=== PATIENT | male | born 1945 | race Caucasian/White ===

== ENCOUNTER 2020-07-19 20:06 | Inpatient (IN) | payer BC, SELFPAY ==
[~2020-07-19] VITALS: Ht 170.2 cm; Wt 68.0 kg
[2020-07-19 20:06] VITALS: BP_SYST 135
[2020-07-19 22:39] LABS: HEMATOCRIT 36.6 % (36-54); HEMOGLOBIN 12.7 g/dL (14.0-18.0); MEAN CORPUSCULAR HEMOGLOBIN 39 pg (27-31); MEAN CORPUSCULAR HGB CONC 35 % (32-36); MEAN CORPUSCULAR VOLUME 111 fL (79.0-98.0); PLATELET COUNT (AUTO) 139 K/uL (130-430); RED BLOOD CELL COUNT(AUTO) 3.31 MIL/uL (4.2-6.2); RED CELL DISTRIBUTION WIDTH 14.3 % (9.0-15.0); WHITE BLOOD COUNT (AUTO) 8.8 K/uL (4.8-10.8)
[2020-07-19 23:11] LABS: ANION GAP 9 (5-15); CALCIUM 8.1 mg/dL (8.4-11.0); CHLORIDE 100 mmol/L (98-107); CREATININE 0.89 mg/dL (0.55-1.30); GLUCOSE 121 mg/dL (70-99); POTASSIUM 3.9 mmol/L (3.5-5.1); SODIUM SERUM 135 mmol/L (136-145); UREA NITROGEN, BLOOD 20 mg/dL (8-21)
[2020-07-19 23:22] LABS: ALANINE AMINOTRANSFERASE 37 U/L (12-78); ALBUMIN 2.6 g/dL (3.4-4.8); ASPARTATE AMINOTRANSFERASE 78 U/L (10-37); TOTAL BILIRUBIN 0.6 mg/dL (0.0-1.0)
[2020-07-20 02:07] LABS: C-REACTIVE PROTEIN QUANT 28.7 mg/dL (0-0.5)
[2020-07-20] MEDS ORDERED: cefTRIAXone 1 GM in D5W 50 ML IV ONE (03:30)
[2020-07-20] MEDS ORDERED: VANCOMYCIN HCL 1,000 MG in NS 250 ML IV ONE (04:15)
[2020-07-20] MEDS ORDERED: cefTRIAXone 1 GM VIAL ONE (04:37)
[2020-07-20] MEDS ORDERED: NACL 0.9% 1,000 ML IV ONE (04:45)
[2020-07-20] MEDS ORDERED: VANCOMYCIN HCL 1000 MG/VIAL IV ONE (04:52)
[2020-07-20] MEDS ORDERED: ONDANSETRON HCL 4 MG/2 ML VIAL IVP PRN (07:00)
[2020-07-20] MEDS ORDERED: HYDROcodone/ACETAMIN 10-325 MG TAB PO PRN (07:00)
[2020-07-20] MEDS ORDERED: ALBUTEROL SULFATE 0.083% 2.5 MG/3 ML VIAL.NEB INH PRN (07:00)
[2020-07-20] MEDS: IPRATROPIUM BROM 0.5 MG/2.5 ML VIAL.NEB (ATROVENT) INH SCH ×2 (07:00→11:00)
[2020-07-20] MEDS ORDERED: LORazepam 2 MG/ML VIAL IVP PRN (07:00)
[2020-07-20] MEDS ORDERED: HYDROcodone/ACETAMIN 5-325 MG TAB (NORCO/ VICODIN) PO PRN (07:00)
[2020-07-20] MEDS ORDERED: NALOXONE HCL 0.4 MG/ML AMP (NARCAN) IVP PRN ×2 (07:00)
[2020-07-20] MEDS ORDERED: ENOXAPARIN SODIUM 30 MG/0.3 ML SYRINGE SUBCUT SCH (09:00)
[2020-07-20] MEDS: AZITHROMYCIN 500 MG in NS 250 ML IV SCH (09:18)
[2020-07-20 10:08] LABS: BASOPHILS % (AUTO) 0.2 % (0.0-2.0); HEMOGLOBIN 12.3 g/dL (14.0-18.0); LYMPHOCYTES # (AUTO) 0.6 K/uL (1.0-5.5); LYMPHOCYTES % (AUTO) 6.8 % (20.5-51.5); MEAN CORPUSCULAR HEMOGLOBIN 38 pg (27-31); MEAN CORPUSCULAR HGB CONC 34 % (32-36); MEAN CORPUSCULAR VOLUME 111 fL (79.0-98.0); MONOCYTES # (AUTO) 0.1 K/uL (0.0-1.0); MONOCYTES % (AUTO) 1.3 % (1.7-9.3); NEUTROPHILS # (AUTO) 8.2 K/uL (1.8-7.7); NEUTROPHILS % (AUTO) 91.7 % (40.0-70.0); PLATELET COUNT (AUTO) 141 K/uL (130-430); RED BLOOD CELL COUNT(AUTO) 3.23 MIL/uL (4.2-6.2); RED CELL DISTRIBUTION WIDTH 14.5 % (9.0-15.0); WHITE BLOOD COUNT (AUTO) 8.9 K/uL (4.8-10.8)
[2020-07-20 10:38] LABS: ANION GAP 10 (5-15); CALCIUM 7.9 mg/dL (8.4-11.0); CHLORIDE 102 mmol/L (98-107); CREATININE 0.69 mg/dL (0.55-1.30); GLUCOSE 90 mg/dL (70-99); POTASSIUM 3.9 mmol/L (3.5-5.1); SODIUM SERUM 138 mmol/L (136-145); UREA NITROGEN, BLOOD 17 mg/dL (8-21)
[2020-07-20 11:41] VITALS: BP_SYST 121
[2020-07-20] MEDS ORDERED: DECADRON 4 MG TABLET PO ONE (11:45)
[2020-07-20 12:35] LABS: ERYTHROCYTE SEDIMENTATION RATE 88 MM/HR (0-15)
[2020-07-20] MEDS ORDERED: NORMAL SALINE 5 ML DISP.SYRIN IVF SCH (14:00)
[2020-07-20] MEDS: NORMAL SALINE 5 ML DISP.SYRIN IVF SCH ×2 (14:04→22:12)
[2020-07-20 14:36] LABS: C-REACTIVE PROTEIN QUANT 32.1 mg/dL (0-0.5)
[2020-07-20 14:48] LABS: ALBUMIN 2.3 g/dL (3.4-4.8); BILIRUBIN,DIRECT 0.2 mg/dL (0.0-0.3); TOTAL BILIRUBIN 0.5 mg/dL (0.0-1.0)
[2020-07-20] MEDS: ALBUTEROL MDI INHALATION 8 GM INH INH SCH ×3 (15:00→23:28)
[2020-07-20] MEDS: ASCORBIC ACID 500 MG TABLET PO SCH (20:43)
[2020-07-20] MEDS: ENOXAPARIN SODIUM 40 MG/0.4 ML SYRINGE SUBCUT SCH (20:48)
[2020-07-20] MEDS: cefTRIAXone 1 GM IVPB PREMIX 50 ML IV SCH (20:49)
[2020-07-21 01:30] VITALS: BP_SYST 104
[2020-07-21] MEDS: NORMAL SALINE 5 ML DISP.SYRIN IVF SCH ×3 (06:53→21:20)
[2020-07-21 08:00] VITALS: BP_SYST 127
[2020-07-21 08:14] LABS: BASOPHILS % (AUTO) 0.2 % (0.0-2.0); HEMATOCRIT 37.4 % (36-54); HEMOGLOBIN 12.9 g/dL (14.0-18.0); LYMPHOCYTES # (AUTO) 0.6 K/uL (1.0-5.5); LYMPHOCYTES % (AUTO) 6.1 % (20.5-51.5); MEAN CORPUSCULAR HEMOGLOBIN 38 pg (27-31); MEAN CORPUSCULAR HGB CONC 35 % (32-36); MEAN CORPUSCULAR VOLUME 111 fL (79.0-98.0); MONOCYTES # (AUTO) 0.2 K/uL (0.0-1.0); MONOCYTES % (AUTO) 1.7 % (1.7-9.3); NEUTROPHILS # (AUTO) 8.5 K/uL (1.8-7.7); PLATELET COUNT (AUTO) 164 K/uL (130-430); RED BLOOD CELL COUNT(AUTO) 3.37 MIL/uL (4.2-6.2); RED CELL DISTRIBUTION WIDTH 14.8 % (9.0-15.0); WHITE BLOOD COUNT (AUTO) 9.3 K/uL (4.8-10.8)
[2020-07-21] MEDS: CHOLECALCIFEROL (VITAMIN D3) 5,000 UNIT TABLET PO SCH (08:31)
[2020-07-21] MEDS: AZITHROMYCIN 500 MG in NS 250 ML IV SCH (08:31)
[2020-07-21] MEDS: DECADRON 4 MG TABLET PO SCH (08:31)
[2020-07-21] MEDS: ASCORBIC ACID 500 MG TABLET PO SCH ×2 (08:31→21:08)
[2020-07-21] MEDS: ENOXAPARIN SODIUM 40 MG/0.4 ML SYRINGE SUBCUT SCH ×2 (08:31→21:20)
[2020-07-21 09:24] LABS: ALANINE AMINOTRANSFERASE 43 U/L (12-78); ALBUMIN 2.2 g/dL (3.4-4.8); ANION GAP 10 (5-15); ASPARTATE AMINOTRANSFERASE 65 U/L (10-37); CALCIUM 8.5 mg/dL (8.4-11.0); CHLORIDE 103 mmol/L (98-107); CREATININE 0.65 mg/dL (0.55-1.30); GLUCOSE 116 mg/dL (70-99); PHOSPHORUS 2.7 mg/dL (2.7-4.5); SODIUM SERUM 140 mmol/L (136-145); TOTAL BILIRUBIN 0.4 mg/dL (0.0-1.0); UREA NITROGEN, BLOOD 21 mg/dL (8-21)
[2020-07-21] MEDS: ALBUTEROL MDI INHALATION 8 GM INH INH SCH ×5 (10:24→23:49)
[2020-07-21 11:53] VITALS: BP_SYST 119
[2020-07-21 16:34] VITALS: BP_SYST 119
[2020-07-21] MEDS: cefTRIAXone 1 GM IVPB PREMIX 50 ML IV SCH (21:08)
[2020-07-22 01:32] VITALS: BP_SYST 116
[2020-07-22] MEDS: ALBUTEROL MDI INHALATION 8 GM INH INH SCH ×5 (05:00→23:56)
[2020-07-22] MEDS: NORMAL SALINE 5 ML DISP.SYRIN IVF SCH ×3 (07:02→22:00)
[2020-07-22 07:38] LABS: BASOPHILS % (AUTO) 0.1 % (0.0-2.0); HEMATOCRIT 36.6 % (36-54); HEMOGLOBIN 12.6 g/dL (14.0-18.0); LYMPHOCYTES # (AUTO) 0.4 K/uL (1.0-5.5); LYMPHOCYTES % (AUTO) 3.8 % (20.5-51.5); MEAN CORPUSCULAR HEMOGLOBIN 38 pg (27-31); MEAN CORPUSCULAR HGB CONC 34 % (32-36); MEAN CORPUSCULAR VOLUME 110 fL (79.0-98.0); MONOCYTES # (AUTO) 0.2 K/uL (0.0-1.0); MONOCYTES % (AUTO) 1.8 % (1.7-9.3); NEUTROPHILS # (AUTO) 11.1 K/uL (1.8-7.7); PLATELET COUNT (AUTO) 193 K/uL (130-430); RED BLOOD CELL COUNT(AUTO) 3.32 MIL/uL (4.2-6.2); RED CELL DISTRIBUTION WIDTH 14.5 % (9.0-15.0); WHITE BLOOD COUNT (AUTO) 11.7 K/uL (4.8-10.8)
[2020-07-22 07:58] VITALS: BP_SYST 131
[2020-07-22 08:27] LABS: ALANINE AMINOTRANSFERASE 43 U/L (12-78); ALBUMIN 2.2 g/dL (3.4-4.8); ANION GAP 9 (5-15); ASPARTATE AMINOTRANSFERASE 58 U/L (10-37); CALCIUM 8.1 mg/dL (8.4-11.0); CHLORIDE 104 mmol/L (98-107); CREATININE 0.88 mg/dL (0.55-1.30); GLUCOSE 160 mg/dL (70-99); POTASSIUM 3.9 mmol/L (3.5-5.1); SODIUM SERUM 139 mmol/L (136-145); TOTAL BILIRUBIN 0.5 mg/dL (0.0-1.0); UREA NITROGEN, BLOOD 27 mg/dL (8-21)
[2020-07-22 09:36] LABS: C-REACTIVE PROTEIN QUANT 19.5 mg/dL (0-0.5)
[2020-07-22] MEDS: AZITHROMYCIN 500 MG in NS 250 ML IV SCH (10:34)
[2020-07-22] MEDS: ASCORBIC ACID 500 MG TABLET PO SCH ×2 (10:34→21:00)
[2020-07-22] MEDS: ENOXAPARIN SODIUM 40 MG/0.4 ML SYRINGE SUBCUT SCH ×2 (10:35→21:00)
[2020-07-22] MEDS: CHOLECALCIFEROL (VITAMIN D3) 5,000 UNIT TABLET PO SCH (10:42)
[2020-07-22] MEDS: DECADRON 4 MG TABLET PO SCH (10:42)
[2020-07-22 12:24] LABS: ERYTHROCYTE SEDIMENTATION RATE 82 MM/HR (0-15)
[2020-07-22 13:01] VITALS: BP_SYST 137
[2020-07-22 15:17] LABS: NEUTROPHILS % (AUTO) 94.3 % (40.0-70.0)
[2020-07-22 17:09] VITALS: BP_SYST 142
[2020-07-22 20:00] VITALS: BP_SYST 147
[2020-07-22] MEDS: cefTRIAXone 1 GM IVPB PREMIX 50 ML IV SCH (21:00)
[2020-07-22] MEDS: ACETAMINOPHEN 325 MG TABLET PO PRN (22:30)
[2020-07-23] VITALS (7 sets, daily range): BP systolic 115–151
[2020-07-23] MEDS: ACETAMINOPHEN 325 MG TABLET PO PRN ×2 (02:09→10:26)
[2020-07-23] MEDS: ALBUTEROL MDI INHALATION 8 GM INH INH SCH ×4 (03:41→23:34)
[2020-07-23] MEDS: CHOLECALCIFEROL (VITAMIN D3) 5,000 UNIT TABLET PO SCH (09:12)
[2020-07-23] MEDS: DECADRON 4 MG TABLET PO SCH (09:12)
[2020-07-23] MEDS: ASCORBIC ACID 500 MG TABLET PO SCH ×2 (09:12→22:45)
[2020-07-23] MEDS: ENOXAPARIN SODIUM 40 MG/0.4 ML SYRINGE SUBCUT SCH ×2 (09:14→22:45)
[2020-07-23] MEDS: AZITHROMYCIN 500 MG in NS 250 ML IV SCH (09:17)
[2020-07-23 09:42] LABS: BASOPHILS % (AUTO) 0.1 % (0.0-2.0); HEMATOCRIT 37.7 % (36-54); LYMPHOCYTES % (AUTO) 9.5 % (20.5-51.5); MEAN CORPUSCULAR HEMOGLOBIN 38 pg (27-31); MEAN CORPUSCULAR HGB CONC 34 % (32-36); MEAN CORPUSCULAR VOLUME 111 fL (79.0-98.0); MONOCYTES # (AUTO) 0.1 K/uL (0.0-1.0); MONOCYTES % (AUTO) 0.9 % (1.7-9.3); NEUTROPHILS # (AUTO) 9.3 K/uL (1.8-7.7); NEUTROPHILS % (AUTO) 89.5 % (40.0-70.0); PLATELET COUNT (AUTO) 205 K/uL (130-430); RED BLOOD CELL COUNT(AUTO) 3.41 MIL/uL (4.2-6.2); RED CELL DISTRIBUTION WIDTH 14.6 % (9.0-15.0); WHITE BLOOD COUNT (AUTO) 10.4 K/uL (4.8-10.8)
[2020-07-23 09:44] LABS: ALANINE AMINOTRANSFERASE 73 U/L (12-78); ALBUMIN 2.2 g/dL (3.4-4.8); ANION GAP 12 (5-15); ASPARTATE AMINOTRANSFERASE 147 U/L (10-37); CALCIUM 7.9 mg/dL (8.4-11.0); CHLORIDE 103 mmol/L (98-107); GLUCOSE 85 mg/dL (70-99); POTASSIUM 4.1 mmol/L (3.5-5.1); SODIUM SERUM 139 mmol/L (136-145); TOTAL BILIRUBIN 0.8 mg/dL (0.0-1.0); UREA NITROGEN, BLOOD 20 mg/dL (8-21)
[2020-07-23 10:15] LABS: C-REACTIVE PROTEIN QUANT 26.2 mg/dL (0-0.5)
[2020-07-23 12:33] LABS: ERYTHROCYTE SEDIMENTATION RATE 80 MM/HR (0-15)
[2020-07-23] MEDS: NORMAL SALINE 5 ML DISP.SYRIN IVF SCH ×2 (14:54→22:45)
[2020-07-23] MEDS: cefTRIAXone 1 GM IVPB PREMIX 50 ML IV SCH (22:45)
[2020-07-23] MEDS ORDERED: LORazepam 2 MG/ML VIAL IVP PRN (23:45)
[2020-07-24] VITALS (31 sets, daily range): BP systolic 76–156
[2020-07-24] MEDS: PROPOFOL DRIP 100 ML IV PRN ×5 (01:15→20:07)
[2020-07-24] MEDS ORDERED: NOREPINEPHRINE 4 MG/4 ML VIAL IV ONE (02:17)
[2020-07-24] MEDS: NOREPINEPHRINE BITARTRATE 4 MG in NS 246 ML IV PRN ×3 (05:29→22:32)
[2020-07-24] MEDS: NORMAL SALINE 5 ML DISP.SYRIN IVF SCH (06:40)
[2020-07-24] MEDS: ALBUTEROL MDI INHALATION 8 GM INH INH SCH ×5 (07:45→23:00)
[2020-07-24 08:38] LABS: BASOPHILS % (AUTO) 0.2 % (0.0-2.0); HEMATOCRIT 36.4 % (36-54); HEMOGLOBIN 12.1 g/dL (14.0-18.0); LYMPHOCYTES # (AUTO) 0.7 K/uL (1.0-5.5); LYMPHOCYTES % (AUTO) 4.7 % (20.5-51.5); MEAN CORPUSCULAR HEMOGLOBIN 37 pg (27-31); MEAN CORPUSCULAR HGB CONC 33 % (32-36); MEAN CORPUSCULAR VOLUME 112 fL (79.0-98.0); MONOCYTES # (AUTO) 0.2 K/uL (0.0-1.0); MONOCYTES % (AUTO) 1.4 % (1.7-9.3); NEUTROPHILS # (AUTO) 13.9 K/uL (1.8-7.7); NEUTROPHILS % (AUTO) 93.7 % (40.0-70.0); PLATELET COUNT (AUTO) 203 K/uL (130-430); RED BLOOD CELL COUNT(AUTO) 3.25 MIL/uL (4.2-6.2); RED CELL DISTRIBUTION WIDTH 14.6 % (9.0-15.0); WHITE BLOOD COUNT (AUTO) 14.8 K/uL (4.8-10.8)
[2020-07-24 08:45] LABS: ANION GAP 10 (5-15); CHLORIDE 103 mmol/L (98-107); GLUCOSE 109 mg/dL (70-99); POTASSIUM 4.2 mmol/L (3.5-5.1); SODIUM SERUM 139 mmol/L (136-145); UREA NITROGEN, BLOOD 21 mg/dL (8-21)
[2020-07-24 08:51] LABS: ALANINE AMINOTRANSFERASE 91 U/L (12-78); ASPARTATE AMINOTRANSFERASE 132 U/L (10-37); TOTAL BILIRUBIN 0.6 mg/dL (0.0-1.0)
[2020-07-24] MEDS: FAMOTIDINE PF 20 MG/2 ML VIAL IVP SCH ×2 (09:54→20:42)
[2020-07-24] MEDS: ASCORBIC ACID 500 MG TABLET PO SCH ×2 (09:54→20:42)
[2020-07-24 09:59] LABS: C-REACTIVE PROTEIN QUANT 32.8 mg/dL (0-0.5)
[2020-07-24] MEDS: AZITHROMYCIN 500 MG in NS 250 ML IV SCH (10:17)
[2020-07-24] MEDS: CHOLECALCIFEROL (VITAMIN D3) 5,000 UNIT TABLET PO SCH (10:17)
[2020-07-24] MEDS: ENOXAPARIN SODIUM 40 MG/0.4 ML SYRINGE SUBCUT SCH ×2 (10:22→20:44)
[2020-07-24] MEDS: DECADRON 4 MG TABLET PO SCH (10:25)
[2020-07-24 10:50] LABS: ERYTHROCYTE SEDIMENTATION RATE 83 MM/HR (0-15)
[2020-07-24] MEDS: D5/0.45 NS 1,000 ML IV SCH ×2 (13:28→21:38)
[2020-07-24] MEDS ORDERED: ETOMIDATE 20 MG/ 10 ML VIAL (AMIDATE) IVP ONE ×2 (16:25)
[2020-07-24] MEDS ORDERED: SUCCINYLCHOLINE CHLORIDE 20 MG/ML(QUELICIN) IVP ONE (16:25)
[2020-07-24] MEDS: cefTRIAXone 1 GM IVPB PREMIX 50 ML IV SCH (20:42)
[2020-07-25] VITALS (31 sets, daily range): BP systolic 90–149
[2020-07-25] MEDS: PROPOFOL DRIP 100 ML IV PRN ×3 (00:41→17:28)
[2020-07-25] MEDS: NOREPINEPHRINE BITARTRATE 4 MG in NS 246 ML IV PRN ×2 (00:42→14:35)
[2020-07-25] MEDS: D5/0.45 NS 1,000 ML IV SCH ×4 (02:35→23:35)
[2020-07-25] MEDS: ALBUTEROL MDI INHALATION 8 GM INH INH SCH ×6 (03:48→22:30)
[2020-07-25 07:01] LABS: BASOPHILS % (AUTO) 0.2 % (0.0-2.0); HEMATOCRIT 33.7 % (36-54); HEMOGLOBIN 11.3 g/dL (14.0-18.0); LYMPHOCYTES # (AUTO) 0.4 K/uL (1.0-5.5); LYMPHOCYTES % (AUTO) 2.6 % (20.5-51.5); MEAN CORPUSCULAR HEMOGLOBIN 37 pg (27-31); MEAN CORPUSCULAR HGB CONC 34 % (32-36); MEAN CORPUSCULAR VOLUME 111 fL (79.0-98.0); MONOCYTES # (AUTO) 0.2 K/uL (0.0-1.0); MONOCYTES % (AUTO) 1.3 % (1.7-9.3); NEUTROPHILS # (AUTO) 13.1 K/uL (1.8-7.7); NEUTROPHILS % (AUTO) 95.9 % (40.0-70.0); PLATELET COUNT (AUTO) 182 K/uL (130-430); RED BLOOD CELL COUNT(AUTO) 3.03 MIL/uL (4.2-6.2); RED CELL DISTRIBUTION WIDTH 15.3 % (9.0-15.0); WHITE BLOOD COUNT (AUTO) 13.6 K/uL (4.8-10.8)
[2020-07-25 07:23] LABS: ANION GAP 7 (5-15); CALCIUM 7.4 mg/dL (8.4-11.0); CHLORIDE 107 mmol/L (98-107); CREATININE 0.63 mg/dL (0.55-1.30); GLUCOSE 189 mg/dL (70-99); POTASSIUM 3.9 mmol/L (3.5-5.1); SODIUM SERUM 142 mmol/L (136-145); UREA NITROGEN, BLOOD 14 mg/dL (8-21)
[2020-07-25 08:00] LABS: ERYTHROCYTE SEDIMENTATION RATE 80 MM/HR (0-15)
[2020-07-25 08:53] LABS: C-REACTIVE PROTEIN QUANT 23.6 mg/dL (0-0.5)
[2020-07-25] MEDS: FAMOTIDINE PF 20 MG/2 ML VIAL IVP SCH ×2 (08:59→21:00)
[2020-07-25] MEDS: ASCORBIC ACID 500 MG TABLET PO SCH ×2 (09:00→21:00)
[2020-07-25] MEDS: DECADRON 4 MG TABLET PO SCH (09:00)
[2020-07-25] MEDS ORDERED: ENOXAPARIN SODIUM 80 MG/0.8 ML SYRINGE SUBCUT SCH (09:00)
[2020-07-25] MEDS: CHOLECALCIFEROL (VITAMIN D3) 5,000 UNIT TABLET PO SCH (09:00)
[2020-07-25] MEDS ORDERED: ENOXAPARIN SODIUM 80 MG/0.8 ML SYRINGE SUBCUT ONE (10:00)
[2020-07-25] MEDS: ENOXAPARIN SODIUM 40 MG/0.4 ML SYRINGE SUBCUT SCH (21:00)
[2020-07-25] MEDS: cefTRIAXone 1 GM IVPB PREMIX 50 ML IV SCH (21:00)
[2020-07-26] VITALS (34 sets, daily range): BP systolic 115–152
[2020-07-26] MEDS: ALBUTEROL MDI INHALATION 8 GM INH INH SCH ×5 (03:15→20:21)
[2020-07-26] MEDS: PROPOFOL DRIP 100 ML IV PRN ×3 (03:53→16:27)
[2020-07-26] MEDS: NOREPINEPHRINE BITARTRATE 4 MG in NS 246 ML IV PRN (05:13)
[2020-07-26] MEDS: D5/0.45 NS 1,000 ML IV SCH ×4 (06:02→23:37)
[2020-07-26 06:47] LABS: BASOPHILS % (AUTO) 0.1 % (0.0-2.0); HEMATOCRIT 31.9 % (36-54); HEMOGLOBIN 10.8 g/dL (14.0-18.0); LYMPHOCYTES # (AUTO) 0.5 K/uL (1.0-5.5); MEAN CORPUSCULAR HEMOGLOBIN 38 pg (27-31); MEAN CORPUSCULAR HGB CONC 34 % (32-36); MEAN CORPUSCULAR VOLUME 112 fL (79.0-98.0); MONOCYTES # (AUTO) 0.2 K/uL (0.0-1.0); MONOCYTES % (AUTO) 1.8 % (1.7-9.3); NEUTROPHILS # (AUTO) 10.8 K/uL (1.8-7.7); PLATELET COUNT (AUTO) 163 K/uL (130-430); RED BLOOD CELL COUNT(AUTO) 2.84 MIL/uL (4.2-6.2); RED CELL DISTRIBUTION WIDTH 15.1 % (9.0-15.0); WHITE BLOOD COUNT (AUTO) 11.5 K/uL (4.8-10.8)
[2020-07-26 07:19] LABS: ALANINE AMINOTRANSFERASE 62 U/L (12-78); ALBUMIN 1.6 g/dL (3.4-4.8); ANION GAP 6 (5-15); CALCIUM 7.1 mg/dL (8.4-11.0); CHLORIDE 108 mmol/L (98-107); CREATININE 0.54 mg/dL (0.55-1.30); GLUCOSE 226 mg/dL (70-99); POTASSIUM 3.6 mmol/L (3.5-5.1); SODIUM SERUM 143 mmol/L (136-145); TOTAL BILIRUBIN 0.2 mg/dL (0.0-1.0); UREA NITROGEN, BLOOD 15 mg/dL (8-21)
[2020-07-26 07:54] LABS: NEUTROPHILS % (AUTO) 94.1 % (40.0-70.0)
[2020-07-26 08:06] LABS: ASPARTATE AMINOTRANSFERASE 52 U/L (10-37)
[2020-07-26] MEDS: DECADRON 4 MG TABLET PO SCH (10:02)
[2020-07-26] MEDS: ASCORBIC ACID 500 MG TABLET PO SCH ×2 (10:03→21:00)
[2020-07-26] MEDS: ENOXAPARIN SODIUM 40 MG/0.4 ML SYRINGE SUBCUT SCH ×2 (10:04→21:00)
[2020-07-26] MEDS: CHOLECALCIFEROL (VITAMIN D3) 5,000 UNIT TABLET PO SCH (10:05)
[2020-07-26] MEDS: FAMOTIDINE PF 20 MG/2 ML VIAL IVP SCH ×2 (10:05→21:00)
[2020-07-26 12:21] LABS: C-REACTIVE PROTEIN QUANT 13.2 mg/dL (0-0.5)
[2020-07-26] MEDS: cefTRIAXone 1 GM IVPB PREMIX 50 ML IV SCH (21:00)
[2020-07-27] VITALS (33 sets, daily range): BP systolic 93–145
[2020-07-27] MEDS: ALBUTEROL MDI INHALATION 8 GM INH INH SCH ×4 (00:21→11:25)
[2020-07-27] MEDS: PROPOFOL DRIP 100 ML IV PRN ×5 (01:22→22:05)
[2020-07-27] MEDS: NOREPINEPHRINE BITARTRATE 4 MG in NS 246 ML IV PRN ×2 (01:24→20:45)
[2020-07-27 07:05] LABS: BASOPHILS % (AUTO) 0.2 % (0.0-2.0); EOSINOPHILS % (AUTO) 0.1 % (0.0-4.0); HEMATOCRIT 33.4 % (36-54); HEMOGLOBIN 11.4 g/dL (14.0-18.0); LYMPHOCYTES # (AUTO) 0.6 K/uL (1.0-5.5); LYMPHOCYTES % (AUTO) 5.2 % (20.5-51.5); MEAN CORPUSCULAR HEMOGLOBIN 38 pg (27-31); MEAN CORPUSCULAR HGB CONC 34 % (32-36); MEAN CORPUSCULAR VOLUME 112 fL (79.0-98.0); MONOCYTES # (AUTO) 0.1 K/uL (0.0-1.0); MONOCYTES % (AUTO) 0.5 % (1.7-9.3); NEUTROPHILS # (AUTO) 10.6 K/uL (1.8-7.7); PLATELET COUNT (AUTO) 140 K/uL (130-430); RED CELL DISTRIBUTION WIDTH 15.5 % (9.0-15.0); WHITE BLOOD COUNT (AUTO) 11.3 K/uL (4.8-10.8)
[2020-07-27 07:37] LABS: ANION GAP 8 (5-15); CALCIUM 7.4 mg/dL (8.4-11.0); CHLORIDE 108 mmol/L (98-107); GLUCOSE 186 mg/dL (70-99); POTASSIUM 3.5 mmol/L (3.5-5.1); SODIUM SERUM 146 mmol/L (136-145); UREA NITROGEN, BLOOD 15 mg/dL (8-21)
[2020-07-27 10:49] LABS: C-REACTIVE PROTEIN QUANT 10.4 mg/dL (0-0.5)
[2020-07-27] MEDS: DECADRON 4 MG TABLET PO SCH (10:53)
[2020-07-27] MEDS: FAMOTIDINE PF 20 MG/2 ML VIAL IVP SCH ×2 (10:53→20:12)
[2020-07-27] MEDS: CHOLECALCIFEROL (VITAMIN D3) 5,000 UNIT TABLET PO SCH (10:53)
[2020-07-27] MEDS: ASCORBIC ACID 500 MG TABLET PO SCH ×2 (11:42→20:12)
[2020-07-27] MEDS: ENOXAPARIN SODIUM 40 MG/0.4 ML SYRINGE SUBCUT SCH ×2 (11:49→20:12)
[2020-07-27] MEDS: D5/0.45 NS 1,000 ML IV SCH ×3 (13:27→22:01)
[2020-07-27 13:33] LABS: ERYTHROCYTE SEDIMENTATION RATE 66 MM/HR (0-15)
[2020-07-27] MEDS: DOCUSATE SODIUM 100 MG/10 ML UDC NG SCH (20:11)
[2020-07-27] MEDS: PSYLLIUM HUSK 1 PKT PACKET NG SCH (20:12)
[2020-07-27] MEDS: MIDAZOLAM HCL IN 0.9 % NACL/PF 50 ML IV PRN (20:13)
[2020-07-28] VITALS (31 sets, daily range): BP systolic 86–132
[2020-07-28] MEDS: D5/0.45 NS 1,000 ML IV SCH ×4 (03:55→21:02)
[2020-07-28] MEDS: ALBUTEROL MDI INHALATION 8 GM INH INH SCH ×5 (08:00→23:00)
[2020-07-28 08:25] LABS: ALANINE AMINOTRANSFERASE 62 U/L (12-78); ALBUMIN 1.4 g/dL (3.4-4.8); ANION GAP 6 (5-15); ASPARTATE AMINOTRANSFERASE 48 U/L (10-37); CALCIUM 7.1 mg/dL (8.4-11.0); CHLORIDE 105 mmol/L (98-107); CREATININE 0.51 mg/dL (0.55-1.30); GLUCOSE 165 mg/dL (70-99); POTASSIUM 3.5 mmol/L (3.5-5.1); SODIUM SERUM 143 mmol/L (136-145); TOTAL BILIRUBIN 0.3 mg/dL (0.0-1.0); UREA NITROGEN, BLOOD 17 mg/dL (8-21)
[2020-07-28] MEDS: CHOLECALCIFEROL (VITAMIN D3) 5,000 UNIT TABLET PO SCH (08:57)
[2020-07-28] MEDS: ENOXAPARIN SODIUM 40 MG/0.4 ML SYRINGE SUBCUT SCH ×2 (08:57→21:01)
[2020-07-28] MEDS: PSYLLIUM HUSK 1 PKT PACKET NG SCH ×3 (08:57→21:00)
[2020-07-28] MEDS: ASCORBIC ACID 500 MG TABLET PO SCH ×2 (08:57→21:01)
[2020-07-28] MEDS: DOCUSATE SODIUM 100 MG/10 ML UDC NG SCH ×2 (08:57→21:00)
[2020-07-28] MEDS: DECADRON 4 MG TABLET PO SCH (08:59)
[2020-07-28] MEDS: FAMOTIDINE PF 20 MG/2 ML VIAL IVP SCH ×2 (09:03→21:00)
[2020-07-28 09:05] LABS: BASOPHILS % (AUTO) 0.3 % (0.0-2.0); EOSINOPHILS # (AUTO) 0.2 K/uL (0.0-0.4); EOSINOPHILS % (AUTO) 1.2 % (0.0-4.0); HEMATOCRIT 32.2 % (36-54); HEMOGLOBIN 10.7 g/dL (14.0-18.0); LYMPHOCYTES # (AUTO) 0.5 K/uL (1.0-5.5); MEAN CORPUSCULAR HEMOGLOBIN 38 pg (27-31); MEAN CORPUSCULAR HGB CONC 33 % (32-36); MEAN CORPUSCULAR VOLUME 114 fL (79.0-98.0); MONOCYTES # (AUTO) 0.1 K/uL (0.0-1.0); MONOCYTES % (AUTO) 0.5 % (1.7-9.3); NEUTROPHILS # (AUTO) 12.4 K/uL (1.8-7.7); PLATELET COUNT (AUTO) 112 K/uL (130-430); RED BLOOD CELL COUNT(AUTO) 2.84 MIL/uL (4.2-6.2); RED CELL DISTRIBUTION WIDTH 15.1 % (9.0-15.0); WHITE BLOOD COUNT (AUTO) 13.2 K/uL (4.8-10.8)
[2020-07-28] MEDS: PROPOFOL DRIP 100 ML IV PRN ×2 (09:10→17:51)
[2020-07-28] MEDS: MIDAZOLAM HCL IN 0.9 % NACL/PF 50 ML IV PRN (10:03)
[2020-07-28 10:41] LABS: ERYTHROCYTE SEDIMENTATION RATE 88 MM/HR (0-15)
[2020-07-28 11:50] LABS: C-REACTIVE PROTEIN QUANT 24.6 mg/dL (0-0.5)
[2020-07-29] VITALS (32 sets, daily range): BP systolic 102–144
[2020-07-29] MEDS: PROPOFOL DRIP 100 ML IV PRN ×2 (05:11→19:44)
[2020-07-29 07:38] LABS: BASOPHILS % (AUTO) 0.1 % (0.0-2.0); EOSINOPHILS # (AUTO) 0.1 K/uL (0.0-0.4); EOSINOPHILS % (AUTO) 0.4 % (0.0-4.0); HEMATOCRIT 30.1 % (36-54); HEMOGLOBIN 10.1 g/dL (14.0-18.0); LYMPHOCYTES # (AUTO) 0.3 K/uL (1.0-5.5); LYMPHOCYTES % (AUTO) 2.1 % (20.5-51.5); MEAN CORPUSCULAR HEMOGLOBIN 38 pg (27-31); MEAN CORPUSCULAR HGB CONC 34 % (32-36); MEAN CORPUSCULAR VOLUME 112 fL (79.0-98.0); MONOCYTES # (AUTO) 0.1 K/uL (0.0-1.0); MONOCYTES % (AUTO) 0.4 % (1.7-9.3); NEUTROPHILS # (AUTO) 15.1 K/uL (1.8-7.7); PLATELET COUNT (AUTO) 96 K/uL (130-430); RED BLOOD CELL COUNT(AUTO) 2.68 MIL/uL (4.2-6.2); RED CELL DISTRIBUTION WIDTH 15.2 % (9.0-15.0); WHITE BLOOD COUNT (AUTO) 15.6 K/uL (4.8-10.8)
[2020-07-29 08:13] LABS: ANION GAP 3 (5-15); CALCIUM 7.4 mg/dL (8.4-11.0); CHLORIDE 105 mmol/L (98-107); CREATININE 0.47 mg/dL (0.55-1.30); GLUCOSE 145 mg/dL (70-99); POTASSIUM 4.2 mmol/L (3.5-5.1); SODIUM SERUM 143 mmol/L (136-145); UREA NITROGEN, BLOOD 17 mg/dL (8-21)
[2020-07-29] MEDS: ALBUTEROL MDI INHALATION 8 GM INH INH SCH ×5 (08:20→23:00)
[2020-07-29 08:29] LABS: ERYTHROCYTE SEDIMENTATION RATE 111 MM/HR (0-15)
[2020-07-29] MEDS: ENOXAPARIN SODIUM 40 MG/0.4 ML SYRINGE SUBCUT SCH ×2 (09:00→20:39)
[2020-07-29] MEDS: FAMOTIDINE PF 20 MG/2 ML VIAL IVP SCH ×2 (09:30→20:38)
[2020-07-29] MEDS: CHOLECALCIFEROL (VITAMIN D3) 5,000 UNIT TABLET PO SCH (09:30)
[2020-07-29] MEDS: DOCUSATE SODIUM 100 MG/10 ML UDC NG SCH ×2 (09:30→20:42)
[2020-07-29] MEDS: ASCORBIC ACID 500 MG TABLET PO SCH ×2 (09:30→20:39)
[2020-07-29] MEDS: PSYLLIUM HUSK 1 PKT PACKET NG SCH ×3 (09:33→20:38)
[2020-07-29] MEDS: DECADRON 4 MG TABLET PO SCH (09:47)
[2020-07-29 09:57] LABS: C-REACTIVE PROTEIN QUANT 29.2 mg/dL (0-0.5)
[2020-07-29] MEDS: D5/0.45 NS 1,000 ML IV SCH ×3 (12:50→19:45)
[2020-07-30] VITALS (30 sets, daily range): BP systolic 100–141
[2020-07-30] MEDS: ALBUTEROL MDI INHALATION 8 GM INH INH SCH ×6 (03:00→23:00)
[2020-07-30 07:25] LABS: BASOPHILS # (AUTO) 0.1 K/uL (0.0-0.2); BASOPHILS % (AUTO) 0.5 % (0.0-2.0); EOSINOPHILS % (AUTO) 0.1 % (0.0-4.0); HEMATOCRIT 32.2 % (36-54); HEMOGLOBIN 10.8 g/dL (14.0-18.0); LYMPHOCYTES # (AUTO) 0.3 K/uL (1.0-5.5); LYMPHOCYTES % (AUTO) 1.9 % (20.5-51.5); MEAN CORPUSCULAR HEMOGLOBIN 38 pg (27-31); MEAN CORPUSCULAR HGB CONC 33 % (32-36); MEAN CORPUSCULAR VOLUME 113 fL (79.0-98.0); MONOCYTES # (AUTO) 0.1 K/uL (0.0-1.0); NEUTROPHILS # (AUTO) 14.3 K/uL (1.8-7.7); NEUTROPHILS % (AUTO) 96.5 % (40.0-70.0); PLATELET COUNT (AUTO) 105 K/uL (130-430); RED BLOOD CELL COUNT(AUTO) 2.86 MIL/uL (4.2-6.2); RED CELL DISTRIBUTION WIDTH 15.7 % (9.0-15.0); WHITE BLOOD COUNT (AUTO) 14.8 K/uL (4.8-10.8)
[2020-07-30 07:43] LABS: ALANINE AMINOTRANSFERASE 165 U/L (12-78); ALBUMIN 1.3 g/dL (3.4-4.8); CALCIUM 7.9 mg/dL (8.4-11.0); CHLORIDE 102 mmol/L (98-107); CREATININE 0.43 mg/dL (0.55-1.30); GLUCOSE 209 mg/dL (70-99); POTASSIUM 4.5 mmol/L (3.5-5.1); SODIUM SERUM 140 mmol/L (136-145); TOTAL BILIRUBIN 0.3 mg/dL (0.0-1.0); UREA NITROGEN, BLOOD 20 mg/dL (8-21)
[2020-07-30 07:57] LABS: ANION GAP 4 (5-15)
[2020-07-30 07:58] LABS: ASPARTATE AMINOTRANSFERASE 201 U/L (10-37)
[2020-07-30] MEDS: FAMOTIDINE PF 20 MG/2 ML VIAL IVP SCH ×2 (09:47→20:49)
[2020-07-30] MEDS: PSYLLIUM HUSK 1 PKT PACKET NG SCH ×3 (09:47→20:49)
[2020-07-30] MEDS: DOCUSATE SODIUM 100 MG/10 ML UDC NG SCH ×2 (09:47→20:49)
[2020-07-30] MEDS: CHOLECALCIFEROL (VITAMIN D3) 5,000 UNIT TABLET PO SCH (09:47)
[2020-07-30] MEDS: ASCORBIC ACID 500 MG TABLET PO SCH ×2 (09:47→20:50)
[2020-07-30] MEDS: DECADRON 4 MG TABLET PO SCH (09:48)
[2020-07-30] MEDS: D5/0.45 NS 1,000 ML IV SCH ×2 (09:49→13:59)
[2020-07-30] MEDS: ENOXAPARIN SODIUM 40 MG/0.4 ML SYRINGE SUBCUT SCH ×2 (10:07→20:50)
[2020-07-30] MEDS: PROPOFOL DRIP 100 ML IV PRN (14:13)
[2020-07-31] VITALS (26 sets, daily range): BP systolic 98–153
[2020-07-31] MEDS: D5/0.45 NS 1,000 ML IV SCH ×2 (02:19→15:00)
[2020-07-31] MEDS: ALBUTEROL MDI INHALATION 8 GM INH INH SCH ×5 (03:00→23:00)
[2020-07-31] MEDS: PROPOFOL DRIP 100 ML IV PRN ×2 (06:33→17:53)
[2020-07-31 07:02] LABS: ANION GAP 5 (5-15); CALCIUM 7.8 mg/dL (8.4-11.0); CHLORIDE 99 mmol/L (98-107); CREATININE 0.48 mg/dL (0.55-1.30); GLUCOSE 156 mg/dL (70-99); POTASSIUM 4.4 mmol/L (3.5-5.1); SODIUM SERUM 138 mmol/L (136-145); UREA NITROGEN, BLOOD 24 mg/dL (8-21)
[2020-07-31] MEDS: CHOLECALCIFEROL (VITAMIN D3) 5,000 UNIT TABLET PO SCH (09:25)
[2020-07-31] MEDS: DECADRON 4 MG TABLET PO SCH (09:25)
[2020-07-31] MEDS: DOCUSATE SODIUM 100 MG/10 ML UDC NG SCH ×2 (09:25→21:13)
[2020-07-31] MEDS: ASCORBIC ACID 500 MG TABLET PO SCH ×2 (09:25→21:13)
[2020-07-31] MEDS: PSYLLIUM HUSK 1 PKT PACKET NG SCH ×3 (09:25→21:18)
[2020-07-31] MEDS: FAMOTIDINE PF 20 MG/2 ML VIAL IVP SCH ×2 (09:25→21:13)
[2020-07-31] MEDS: ENOXAPARIN SODIUM 40 MG/0.4 ML SYRINGE SUBCUT SCH ×2 (09:25→21:33)
[2020-07-31 11:13] LABS: BASOPHILS % (AUTO) 0.3 % (0.0-2.0); EOSINOPHILS # (AUTO) 0.2 K/uL (0.0-0.4); EOSINOPHILS % (AUTO) 2.3 % (0.0-4.0); HEMATOCRIT 31.8 % (36-54); HEMOGLOBIN 10.7 g/dL (14.0-18.0); LYMPHOCYTES # (AUTO) 0.5 K/uL (1.0-5.5); LYMPHOCYTES % (AUTO) 4.8 % (20.5-51.5); MEAN CORPUSCULAR HEMOGLOBIN 38 pg (27-31); MEAN CORPUSCULAR HGB CONC 34 % (32-36); MEAN CORPUSCULAR VOLUME 112 fL (79.0-98.0); MONOCYTES # (AUTO) 0.2 K/uL (0.0-1.0); MONOCYTES % (AUTO) 1.5 % (1.7-9.3); NEUTROPHILS # (AUTO) 9.5 K/uL (1.8-7.7); PLATELET COUNT (AUTO) 142 K/uL (130-430); RED BLOOD CELL COUNT(AUTO) 2.85 MIL/uL (4.2-6.2); RED CELL DISTRIBUTION WIDTH 15.1 % (9.0-15.0); WHITE BLOOD COUNT (AUTO) 10.5 K/uL (4.8-10.8)
[2020-07-31 14:21] LABS: NEUTROPHILS % (AUTO) 91.1 % (40.0-70.0)
[2020-08-01] VITALS (25 sets, daily range): BP systolic 117–144
[2020-08-01] MEDS: MIDAZOLAM HCL IN 0.9 % NACL/PF 50 ML IV PRN (01:36)
[2020-08-01] MEDS: ALBUTEROL MDI INHALATION 8 GM INH INH SCH ×5 (03:00→19:00)
[2020-08-01] MEDS: PIPERACILLIN/TAZO 3.375/DEX-IS 50 ML IV SCH ×4 (06:00→23:42)
[2020-08-01 07:30] LABS: BASOPHILS % (AUTO) 0.3 % (0.0-2.0); EOSINOPHILS # (AUTO) 0.2 K/uL (0.0-0.4); EOSINOPHILS % (AUTO) 1.5 % (0.0-4.0); HEMATOCRIT 33.1 % (36-54); HEMOGLOBIN 11.2 g/dL (14.0-18.0); LYMPHOCYTES # (AUTO) 0.7 K/uL (1.0-5.5); LYMPHOCYTES % (AUTO) 6.5 % (20.5-51.5); MEAN CORPUSCULAR HEMOGLOBIN 38 pg (27-31); MEAN CORPUSCULAR HGB CONC 34 % (32-36); MEAN CORPUSCULAR VOLUME 112 fL (79.0-98.0); MONOCYTES # (AUTO) 0.1 K/uL (0.0-1.0); MONOCYTES % (AUTO) 1.1 % (1.7-9.3); NEUTROPHILS # (AUTO) 9.7 K/uL (1.8-7.7); NEUTROPHILS % (AUTO) 90.6 % (40.0-70.0); PLATELET COUNT (AUTO) 161 K/uL (130-430); RED BLOOD CELL COUNT(AUTO) 2.96 MIL/uL (4.2-6.2); RED CELL DISTRIBUTION WIDTH 15.1 % (9.0-15.0); WHITE BLOOD COUNT (AUTO) 10.7 K/uL (4.8-10.8)
[2020-08-01] MEDS: D5/0.45 NS 1,000 ML IV SCH ×3 (07:50→17:50)
[2020-08-01 08:08] LABS: ALANINE AMINOTRANSFERASE 443 U/L (12-78); ALBUMIN 1.4 g/dL (3.4-4.8); ANION GAP 6 (5-15); ASPARTATE AMINOTRANSFERASE 157 U/L (10-37); BILIRUBIN,DIRECT 0.2 mg/dL (0.0-0.3); CALCIUM 7.9 mg/dL (8.4-11.0); CHLORIDE 100 mmol/L (98-107); GLUCOSE 160 mg/dL (70-99); POTASSIUM 4.4 mmol/L (3.5-5.1); SODIUM SERUM 138 mmol/L (136-145); TOTAL BILIRUBIN 0.5 mg/dL (0.0-1.0); UREA NITROGEN, BLOOD 25 mg/dL (8-21)
[2020-08-01] MEDS: FAMOTIDINE PF 20 MG/2 ML VIAL IVP SCH ×2 (09:00→20:51)
[2020-08-01] MEDS: DOCUSATE SODIUM 100 MG/10 ML UDC NG SCH ×2 (10:19→20:50)
[2020-08-01] MEDS: ASCORBIC ACID 500 MG TABLET PO SCH ×2 (10:20→20:51)
[2020-08-01] MEDS: PSYLLIUM HUSK 1 PKT PACKET NG SCH ×3 (10:20→20:51)
[2020-08-01] MEDS: CHOLECALCIFEROL (VITAMIN D3) 5,000 UNIT TABLET PO SCH (10:20)
[2020-08-01] MEDS: DECADRON 4 MG TABLET PO SCH (10:20)
[2020-08-01] MEDS: ENOXAPARIN SODIUM 40 MG/0.4 ML SYRINGE SUBCUT SCH ×2 (10:21→20:51)
[2020-08-01] MEDS: PROPOFOL DRIP 100 ML IV PRN (18:57)
[2020-08-02] VITALS (30 sets, daily range): BP systolic 98–138
[2020-08-02] MEDS: ALBUTEROL MDI INHALATION 8 GM INH INH SCH ×7 (00:03→23:27)
[2020-08-02] MEDS: D5/0.45 NS 1,000 ML IV SCH ×3 (03:50→23:50)
[2020-08-02] MEDS: PIPERACILLIN/TAZO 3.375/DEX-IS 50 ML IV SCH ×3 (06:29→17:37)
[2020-08-02 07:27] LABS: ALANINE AMINOTRANSFERASE 283 U/L (12-78); ALBUMIN 1.4 g/dL (3.4-4.8); ANION GAP 4 (5-15); ASPARTATE AMINOTRANSFERASE 70 U/L (10-37); CHLORIDE 100 mmol/L (98-107); CREATININE 0.51 mg/dL (0.55-1.30); GLUCOSE 116 mg/dL (70-99); POTASSIUM 4.5 mmol/L (3.5-5.1); SODIUM SERUM 138 mmol/L (136-145); TOTAL BILIRUBIN 0.4 mg/dL (0.0-1.0); UREA NITROGEN, BLOOD 21 mg/dL (8-21)
[2020-08-02 07:45] LABS: BASOPHILS % (AUTO) 0.3 % (0.0-2.0); EOSINOPHILS # (AUTO) 0.1 K/uL (0.0-0.4); EOSINOPHILS % (AUTO) 0.7 % (0.0-4.0); HEMATOCRIT 30.5 % (36-54); HEMOGLOBIN 10.4 g/dL (14.0-18.0); LYMPHOCYTES # (AUTO) 0.6 K/uL (1.0-5.5); LYMPHOCYTES % (AUTO) 4.9 % (20.5-51.5); MEAN CORPUSCULAR HEMOGLOBIN 38 pg (27-31); MEAN CORPUSCULAR HGB CONC 34 % (32-36); MEAN CORPUSCULAR VOLUME 112 fL (79.0-98.0); MONOCYTES # (AUTO) 0.2 K/uL (0.0-1.0); MONOCYTES % (AUTO) 1.4 % (1.7-9.3); NEUTROPHILS # (AUTO) 12.1 K/uL (1.8-7.7); NEUTROPHILS % (AUTO) 92.7 % (40.0-70.0); PLATELET COUNT (AUTO) 197 K/uL (130-430); RED BLOOD CELL COUNT(AUTO) 2.72 MIL/uL (4.2-6.2); RED CELL DISTRIBUTION WIDTH 15.1 % (9.0-15.0); WHITE BLOOD COUNT (AUTO) 13.1 K/uL (4.8-10.8)
[2020-08-02] MEDS: PSYLLIUM HUSK 1 PKT PACKET NG SCH ×3 (09:18→20:17)
[2020-08-02] MEDS: DOCUSATE SODIUM 100 MG/10 ML UDC NG SCH ×2 (09:18→20:17)
[2020-08-02] MEDS: FAMOTIDINE PF 20 MG/2 ML VIAL IVP SCH ×2 (09:19→20:18)
[2020-08-02] MEDS: ENOXAPARIN SODIUM 40 MG/0.4 ML SYRINGE SUBCUT SCH ×2 (09:19→20:17)
[2020-08-02] MEDS: ASCORBIC ACID 500 MG TABLET PO SCH ×2 (09:19→20:17)
[2020-08-02] MEDS: CHOLECALCIFEROL (VITAMIN D3) 5,000 UNIT TABLET PO SCH (09:19)
[2020-08-02] MEDS: DECADRON 4 MG TABLET PO SCH (09:19)
[2020-08-02] MEDS: PROPOFOL DRIP 100 ML IV PRN (09:32)
[2020-08-02 11:08] LABS: ERYTHROCYTE SEDIMENTATION RATE 105 MM/HR (0-15)
[2020-08-03] VITALS (29 sets, daily range): BP systolic 88–133
[2020-08-03] MEDS: PIPERACILLIN/TAZO 3.375/DEX-IS 50 ML IV SCH ×4 (05:54→17:43)
[2020-08-03 07:02] LABS: ANION GAP 1 (5-15); CALCIUM 7.8 mg/dL (8.4-11.0); CHLORIDE 102 mmol/L (98-107); CREATININE 0.53 mg/dL (0.55-1.30); GLUCOSE 129 mg/dL (70-99); POTASSIUM 4.3 mmol/L (3.5-5.1); SODIUM SERUM 139 mmol/L (136-145); UREA NITROGEN, BLOOD 26 mg/dL (8-21)
[2020-08-03 07:38] LABS: BASOPHILS % (AUTO) 0.3 % (0.0-2.0); EOSINOPHILS % (AUTO) 0.2 % (0.0-4.0); HEMATOCRIT 28.4 % (36-54); HEMOGLOBIN 9.6 g/dL (14.0-18.0); LYMPHOCYTES # (AUTO) 0.5 K/uL (1.0-5.5); LYMPHOCYTES % (AUTO) 5.1 % (20.5-51.5); MEAN CORPUSCULAR HEMOGLOBIN 38 pg (27-31); MEAN CORPUSCULAR HGB CONC 34 % (32-36); MEAN CORPUSCULAR VOLUME 113 fL (79.0-98.0); MONOCYTES # (AUTO) 0.2 K/uL (0.0-1.0); MONOCYTES % (AUTO) 1.5 % (1.7-9.3); NEUTROPHILS # (AUTO) 9.4 K/uL (1.8-7.7); NEUTROPHILS % (AUTO) 92.9 % (40.0-70.0); PLATELET COUNT (AUTO) 174 K/uL (130-430); RED BLOOD CELL COUNT(AUTO) 2.51 MIL/uL (4.2-6.2); RED CELL DISTRIBUTION WIDTH 15.1 % (9.0-15.0); WHITE BLOOD COUNT (AUTO) 10.2 K/uL (4.8-10.8)
[2020-08-03] MEDS: ALBUTEROL MDI INHALATION 8 GM INH INH SCH ×5 (08:15→23:20)
[2020-08-03] MEDS: ASCORBIC ACID 500 MG TABLET PO SCH ×2 (08:21→21:00)
[2020-08-03] MEDS: FAMOTIDINE PF 20 MG/2 ML VIAL IVP SCH ×2 (08:21→21:01)
[2020-08-03] MEDS: CHOLECALCIFEROL (VITAMIN D3) 5,000 UNIT TABLET PO SCH (08:21)
[2020-08-03] MEDS: PSYLLIUM HUSK 1 PKT PACKET NG SCH ×2 (08:21→14:30)
[2020-08-03] MEDS: DOCUSATE SODIUM 100 MG/10 ML UDC NG SCH ×2 (08:21→21:00)
[2020-08-03] MEDS: DECADRON 4 MG TABLET PO SCH (08:23)
[2020-08-03] MEDS: ENOXAPARIN SODIUM 40 MG/0.4 ML SYRINGE SUBCUT SCH ×2 (08:24→21:17)
[2020-08-03] MEDS: D5/0.45 NS 1,000 ML IV SCH ×2 (09:14→21:07)
[2020-08-03] MEDS: PROPOFOL DRIP 100 ML IV PRN ×2 (09:58→21:17)
[2020-08-03 10:28] LABS: C-REACTIVE PROTEIN QUANT 22.5 mg/dL (0-0.5)
[2020-08-03 10:42] LABS: ERYTHROCYTE SEDIMENTATION RATE 111 MM/HR (0-15)
[2020-08-04] VITALS (30 sets, daily range): BP systolic 103–140
[2020-08-04] MEDS: ALBUTEROL MDI INHALATION 8 GM INH INH SCH ×6 (02:22→18:50)
[2020-08-04] MEDS: PIPERACILLIN/TAZO 3.375/DEX-IS 50 ML IV SCH ×5 (06:25→23:45)
[2020-08-04] MEDS: PROPOFOL DRIP 100 ML IV PRN ×2 (06:29→13:26)
[2020-08-04] MEDS: D5/0.45 NS 1,000 ML IV SCH ×2 (06:40→18:33)
[2020-08-04] MEDS: ACETAMINOPHEN 325 MG TABLET PO PRN ×2 (06:54→18:47)
[2020-08-04 07:08] LABS: BASOPHILS # (AUTO) 0.1 K/uL (0.0-0.2); BASOPHILS % (AUTO) 0.4 % (0.0-2.0); EOSINOPHILS # (AUTO) 0.2 K/uL (0.0-0.4); EOSINOPHILS % (AUTO) 1.3 % (0.0-4.0); HEMATOCRIT 31.5 % (36-54); HEMOGLOBIN 10.5 g/dL (14.0-18.0); LYMPHOCYTES # (AUTO) 0.8 K/uL (1.0-5.5); LYMPHOCYTES % (AUTO) 6.2 % (20.5-51.5); MEAN CORPUSCULAR HEMOGLOBIN 37 pg (27-31); MEAN CORPUSCULAR HGB CONC 33 % (32-36); MEAN CORPUSCULAR VOLUME 112 fL (79.0-98.0); MONOCYTES # (AUTO) 0.2 K/uL (0.0-1.0); MONOCYTES % (AUTO) 1.6 % (1.7-9.3); NEUTROPHILS # (AUTO) 12.2 K/uL (1.8-7.7); NEUTROPHILS % (AUTO) 90.5 % (40.0-70.0); PLATELET COUNT (AUTO) 242 K/uL (130-430); RED BLOOD CELL COUNT(AUTO) 2.81 MIL/uL (4.2-6.2); RED CELL DISTRIBUTION WIDTH 15.3 % (9.0-15.0); WHITE BLOOD COUNT (AUTO) 13.5 K/uL (4.8-10.8)
[2020-08-04 08:26] LABS: ALANINE AMINOTRANSFERASE 400 U/L (12-78); ALBUMIN 1.4 g/dL (3.4-4.8); ANION GAP 5 (5-15); ASPARTATE AMINOTRANSFERASE 283 U/L (10-37); CALCIUM 7.7 mg/dL (8.4-11.0); CHLORIDE 100 mmol/L (98-107); CREATININE 0.46 mg/dL (0.55-1.30); GLUCOSE 102 mg/dL (70-99); POTASSIUM 3.9 mmol/L (3.5-5.1); SODIUM SERUM 139 mmol/L (136-145); TOTAL BILIRUBIN 0.5 mg/dL (0.0-1.0); UREA NITROGEN, BLOOD 23 mg/dL (8-21)
[2020-08-04] MEDS: DOCUSATE SODIUM 100 MG/10 ML UDC NG SCH ×2 (10:20→21:41)
[2020-08-04] MEDS: DECADRON 4 MG TABLET PO SCH (10:21)
[2020-08-04] MEDS: FAMOTIDINE PF 20 MG/2 ML VIAL IVP SCH ×2 (10:21→21:41)
[2020-08-04] MEDS: CHOLECALCIFEROL (VITAMIN D3) 5,000 UNIT TABLET PO SCH (10:21)
[2020-08-04] MEDS: ENOXAPARIN SODIUM 40 MG/0.4 ML SYRINGE SUBCUT SCH ×2 (10:22→21:43)
[2020-08-04] MEDS: ASCORBIC ACID 500 MG TABLET PO SCH ×2 (10:26→21:41)
[2020-08-04 11:20] LABS: ERYTHROCYTE SEDIMENTATION RATE 108 MM/HR (0-15)
[2020-08-04 12:20] LABS: C-REACTIVE PROTEIN QUANT 16.6 mg/dL (0-0.5)
[2020-08-05] VITALS (25 sets, daily range): BP systolic 95–129
[2020-08-05] MEDS: ALBUTEROL MDI INHALATION 8 GM INH INH SCH ×7 (00:07→22:45)
[2020-08-05] MEDS: D5/0.45 NS 1,000 ML IV SCH ×2 (03:19→15:36)
[2020-08-05] MEDS: PIPERACILLIN/TAZO 3.375/DEX-IS 50 ML IV SCH ×3 (06:44→17:15)
[2020-08-05 07:15] LABS: HEMATOCRIT 31.9 % (36-54); HEMOGLOBIN 10.6 g/dL (14.0-18.0); MEAN CORPUSCULAR HEMOGLOBIN 38 pg (27-31); MEAN CORPUSCULAR HGB CONC 33 % (32-36); MEAN CORPUSCULAR VOLUME 112 fL (79.0-98.0); PLATELET COUNT (AUTO) 260 K/uL (130-430); RED BLOOD CELL COUNT(AUTO) 2.84 MIL/uL (4.2-6.2); RED CELL DISTRIBUTION WIDTH 15.4 % (9.0-15.0); WHITE BLOOD COUNT (AUTO) 15.1 K/uL (4.8-10.8)
[2020-08-05 07:41] LABS: ANION GAP 6 (5-15); CALCIUM 7.8 mg/dL (8.4-11.0); CHLORIDE 101 mmol/L (98-107); CREATININE 0.44 mg/dL (0.55-1.30); GLUCOSE 109 mg/dL (70-99); POTASSIUM 3.8 mmol/L (3.5-5.1); SODIUM SERUM 139 mmol/L (136-145); UREA NITROGEN, BLOOD 21 mg/dL (8-21)
[2020-08-05] MEDS: DOCUSATE SODIUM 100 MG/10 ML UDC NG SCH ×2 (09:00→20:44)
[2020-08-05] MEDS: CHOLECALCIFEROL (VITAMIN D3) 5,000 UNIT TABLET PO SCH (09:00)
[2020-08-05] MEDS: DECADRON 4 MG TABLET PO SCH (09:00)
[2020-08-05] MEDS: ASCORBIC ACID 500 MG TABLET PO SCH ×2 (09:00→20:37)
[2020-08-05] MEDS: FAMOTIDINE PF 20 MG/2 ML VIAL IVP SCH ×2 (09:00→20:36)
[2020-08-05 10:34] LABS: C-REACTIVE PROTEIN QUANT 25.5 mg/dL (0-0.5)
[2020-08-05 11:12] LABS: ERYTHROCYTE SEDIMENTATION RATE 98 MM/HR (0-15)
[2020-08-05] MEDS: PROPOFOL DRIP 100 ML IV PRN ×2 (12:52→20:05)
[2020-08-05] MEDS: ENOXAPARIN SODIUM 40 MG/0.4 ML SYRINGE SUBCUT SCH ×2 (12:57→20:39)
[2020-08-05 16:06] LABS: BAND % (MANUAL) 4 % (0-6); BASOPHILS % (MANUAL) 0 % (0-2); EOSINOPHILS % (MANUAL) 2 % (0-7); LYMPHOCYTES % (MANUAL) 5 % (20-46); METAMYELOCYTES % 1 % (0-0); MONOCYTES % (MANUAL) 1 % (0-11)
[2020-08-06] VITALS (28 sets, daily range): BP systolic 99–128
[2020-08-06] MEDS: PIPERACILLIN/TAZO 3.375/DEX-IS 50 ML IV SCH ×4 (00:39→18:44)
[2020-08-06] MEDS: D5/0.45 NS 1,000 ML IV SCH ×2 (00:41→12:25)
[2020-08-06] MEDS: ALBUTEROL MDI INHALATION 8 GM INH INH SCH ×6 (03:45→23:10)
[2020-08-06] MEDS: PROPOFOL DRIP 100 ML IV PRN ×2 (04:04→14:02)
[2020-08-06 06:55] LABS: BASOPHILS % (AUTO) 0.3 % (0.0-2.0); EOSINOPHILS # (AUTO) 0.2 K/uL (0.0-0.4); EOSINOPHILS % (AUTO) 1.9 % (0.0-4.0); HEMATOCRIT 29.8 % (36-54); HEMOGLOBIN 9.9 g/dL (14.0-18.0); LYMPHOCYTES # (AUTO) 0.8 K/uL (1.0-5.5); LYMPHOCYTES % (AUTO) 5.8 % (20.5-51.5); MEAN CORPUSCULAR HEMOGLOBIN 37 pg (27-31); MEAN CORPUSCULAR HGB CONC 33 % (32-36); MEAN CORPUSCULAR VOLUME 112 fL (79.0-98.0); MONOCYTES # (AUTO) 0.2 K/uL (0.0-1.0); MONOCYTES % (AUTO) 1.4 % (1.7-9.3); NEUTROPHILS # (AUTO) 11.9 K/uL (1.8-7.7); NEUTROPHILS % (AUTO) 90.6 % (40.0-70.0); PLATELET COUNT (AUTO) 268 K/uL (130-430); RED BLOOD CELL COUNT(AUTO) 2.66 MIL/uL (4.2-6.2); RED CELL DISTRIBUTION WIDTH 15.2 % (9.0-15.0); WHITE BLOOD COUNT (AUTO) 13.2 K/uL (4.8-10.8)
[2020-08-06 07:36] LABS: ALANINE AMINOTRANSFERASE 287 U/L (12-78); ALBUMIN 1.3 g/dL (3.4-4.8); CALCIUM 7.7 mg/dL (8.4-11.0); CHLORIDE 100 mmol/L (98-107); GLUCOSE 127 mg/dL (70-99); POTASSIUM 3.9 mmol/L (3.5-5.1); SODIUM SERUM 139 mmol/L (136-145); TOTAL BILIRUBIN 0.5 mg/dL (0.0-1.0); UREA NITROGEN, BLOOD 23 mg/dL (8-21)
[2020-08-06 08:04] LABS: ANION GAP 7 (5-15)
[2020-08-06 08:58] LABS: ASPARTATE AMINOTRANSFERASE 49 U/L (10-37); C-REACTIVE PROTEIN QUANT 28.6 mg/dL (0-0.5)
[2020-08-06 09:24] LABS: ERYTHROCYTE SEDIMENTATION RATE 107 MM/HR (0-15)
[2020-08-06] MEDS: ENOXAPARIN SODIUM 40 MG/0.4 ML SYRINGE SUBCUT SCH ×2 (09:26→21:00)
[2020-08-06] MEDS: DECADRON 4 MG TABLET PO SCH (09:34)
[2020-08-06] MEDS: DOCUSATE SODIUM 100 MG/10 ML UDC NG SCH ×2 (09:34→21:00)
[2020-08-06] MEDS: ASCORBIC ACID 500 MG TABLET PO SCH ×2 (09:34→21:00)
[2020-08-06] MEDS: CHOLECALCIFEROL (VITAMIN D3) 5,000 UNIT TABLET PO SCH (09:34)
[2020-08-06] MEDS: FAMOTIDINE PF 20 MG/2 ML VIAL IVP SCH ×2 (09:34→21:00)
[2020-08-06] MEDS ORDERED: PROPOFOL DRIP 100 ML IV ONE (12:52)
[2020-08-07] VITALS (31 sets, daily range): BP systolic 97–138
[2020-08-07] MEDS: PIPERACILLIN/TAZO 3.375/DEX-IS 50 ML IV SCH ×4 (00:43→18:42)
[2020-08-07] MEDS: ALBUTEROL MDI INHALATION 8 GM INH INH SCH ×6 (03:19→22:34)
[2020-08-07 05:16] LABS: BASOPHILS % (AUTO) 0.4 % (0.0-2.0); EOSINOPHILS # (AUTO) 0.2 K/uL (0.0-0.4); EOSINOPHILS % (AUTO) 1.3 % (0.0-4.0); HEMATOCRIT 29.2 % (36-54); HEMOGLOBIN 9.7 g/dL (14.0-18.0); LYMPHOCYTES % (AUTO) 7.9 % (20.5-51.5); MEAN CORPUSCULAR HEMOGLOBIN 37 pg (27-31); MEAN CORPUSCULAR HGB CONC 33 % (32-36); MEAN CORPUSCULAR VOLUME 111 fL (79.0-98.0); MONOCYTES # (AUTO) 0.2 K/uL (0.0-1.0); MONOCYTES % (AUTO) 1.8 % (1.7-9.3); NEUTROPHILS # (AUTO) 11.2 K/uL (1.8-7.7); NEUTROPHILS % (AUTO) 88.6 % (40.0-70.0); PLATELET COUNT (AUTO) 289 K/uL (130-430); RED BLOOD CELL COUNT(AUTO) 2.63 MIL/uL (4.2-6.2); RED CELL DISTRIBUTION WIDTH 15.3 % (9.0-15.0); WHITE BLOOD COUNT (AUTO) 12.7 K/uL (4.8-10.8)
[2020-08-07 05:27] LABS: SODIUM SERUM 140 mmol/L (136-145)
[2020-08-07 05:40] LABS: ANION GAP 1 (5-15); CHLORIDE 103 mmol/L (98-107); CREATININE 0.61 mg/dL (0.55-1.30); GLUCOSE 315 mg/dL (70-99); POTASSIUM 3.7 mmol/L (3.5-5.1); UREA NITROGEN, BLOOD 24 mg/dL (8-21)
[2020-08-07 08:00] LABS: ERYTHROCYTE SEDIMENTATION RATE 114 MM/HR (0-15)
[2020-08-07] MEDS: PROPOFOL DRIP 100 ML IV PRN ×2 (09:04→18:42)
[2020-08-07] MEDS: DOCUSATE SODIUM 100 MG/10 ML UDC NG SCH ×2 (09:06→23:40)
[2020-08-07] MEDS: ENOXAPARIN SODIUM 40 MG/0.4 ML SYRINGE SUBCUT SCH ×2 (09:06→23:36)
[2020-08-07] MEDS: DECADRON 4 MG TABLET PO SCH (09:06)
[2020-08-07] MEDS: CHOLECALCIFEROL (VITAMIN D3) 5,000 UNIT TABLET PO SCH (09:06)
[2020-08-07] MEDS: ASCORBIC ACID 500 MG TABLET PO SCH ×2 (09:06→23:37)
[2020-08-07] MEDS: FAMOTIDINE PF 20 MG/2 ML VIAL IVP SCH ×2 (09:07→23:37)
[2020-08-07 10:46] LABS: C-REACTIVE PROTEIN QUANT 23.9 mg/dL (0-0.5)
[2020-08-07] MEDS: D5/0.45 NS 1,000 ML IV SCH ×4 (11:38→20:47)
[2020-08-08] VITALS (31 sets, daily range): BP systolic 100–170
[2020-08-08] MEDS: ALBUTEROL MDI INHALATION 8 GM INH INH SCH ×6 (02:46→22:05)
[2020-08-08] MEDS: PIPERACILLIN/TAZO 3.375/DEX-IS 50 ML IV SCH ×5 (02:49→23:48)
[2020-08-08] MEDS: PROPOFOL DRIP 100 ML IV PRN ×3 (02:57→23:37)
[2020-08-08 06:24] LABS: BASOPHILS # (AUTO) 0.1 K/uL (0.0-0.2); BASOPHILS % (AUTO) 0.5 % (0.0-2.0); EOSINOPHILS # (AUTO) 0.2 K/uL (0.0-0.4); EOSINOPHILS % (AUTO) 1.6 % (0.0-4.0); HEMATOCRIT 28.6 % (36-54); HEMOGLOBIN 9.4 g/dL (14.0-18.0); LYMPHOCYTES # (AUTO) 0.5 K/uL (1.0-5.5); LYMPHOCYTES % (AUTO) 4.2 % (20.5-51.5); MEAN CORPUSCULAR HEMOGLOBIN 37 pg (27-31); MEAN CORPUSCULAR HGB CONC 33 % (32-36); MEAN CORPUSCULAR VOLUME 112 fL (79.0-98.0); MONOCYTES # (AUTO) 0.2 K/uL (0.0-1.0); MONOCYTES % (AUTO) 1.6 % (1.7-9.3); NEUTROPHILS % (AUTO) 92.1 % (40.0-70.0); PLATELET COUNT (AUTO) 284 K/uL (130-430); RED BLOOD CELL COUNT(AUTO) 2.56 MIL/uL (4.2-6.2); RED CELL DISTRIBUTION WIDTH 15.1 % (9.0-15.0); WHITE BLOOD COUNT (AUTO) 11.9 K/uL (4.8-10.8)
[2020-08-08 07:44] LABS: ANION GAP 7 (5-15); CALCIUM 7.5 mg/dL (8.4-11.0); CHLORIDE 102 mmol/L (98-107); CREATININE 0.55 mg/dL (0.55-1.30); GLUCOSE 153 mg/dL (70-99); POTASSIUM 3.7 mmol/L (3.5-5.1); SODIUM SERUM 138 mmol/L (136-145); UREA NITROGEN, BLOOD 26 mg/dL (8-21)
[2020-08-08] MEDS ORDERED: PROPOFOL DRIP 100 ML IV ONE (08:57)
[2020-08-08] MEDS: FAMOTIDINE PF 20 MG/2 ML VIAL IVP SCH ×2 (10:32→20:16)
[2020-08-08] MEDS: DOCUSATE SODIUM 100 MG/10 ML UDC NG SCH ×2 (10:32→20:16)
[2020-08-08] MEDS: ASCORBIC ACID 500 MG TABLET PO SCH ×2 (10:33→20:16)
[2020-08-08] MEDS: CHOLECALCIFEROL (VITAMIN D3) 5,000 UNIT TABLET PO SCH (10:33)
[2020-08-08] MEDS: DECADRON 4 MG TABLET PO SCH (10:33)
[2020-08-08] MEDS: ENOXAPARIN SODIUM 40 MG/0.4 ML SYRINGE SUBCUT SCH ×2 (10:37→20:17)
[2020-08-08] MEDS: D5/0.45 NS 1,000 ML IV SCH ×2 (10:37→18:28)
[2020-08-08 12:09] LABS: ERYTHROCYTE SEDIMENTATION RATE 108 MM/HR (0-15)
[2020-08-08 12:41] LABS: C-REACTIVE PROTEIN QUANT 17.1 mg/dL (0-0.5)
[2020-08-09] VITALS (30 sets, daily range): BP systolic 96–141
[2020-08-09] MEDS: ALBUTEROL MDI INHALATION 8 GM INH INH SCH ×6 (03:48→22:39)
[2020-08-09] MEDS: PROPOFOL DRIP 100 ML IV PRN ×2 (05:37→15:30)
[2020-08-09] MEDS: PIPERACILLIN/TAZO 3.375/DEX-IS 50 ML IV SCH ×3 (05:38→18:10)
[2020-08-09] MEDS: D5/0.45 NS 1,000 ML IV SCH ×2 (05:38→14:20)
[2020-08-09 06:32] LABS: BASOPHILS # (AUTO) 0.2 K/uL (0.0-0.2); BASOPHILS % (AUTO) 1.4 % (0.0-2.0); EOSINOPHILS # (AUTO) 0.6 K/uL (0.0-0.4); EOSINOPHILS % (AUTO) 4.4 % (0.0-4.0); HEMATOCRIT 28.6 % (36-54); HEMOGLOBIN 9.7 g/dL (14.0-18.0); LYMPHOCYTES # (AUTO) 0.6 K/uL (1.0-5.5); MEAN CORPUSCULAR HEMOGLOBIN 38 pg (27-31); MEAN CORPUSCULAR HGB CONC 34 % (32-36); MEAN CORPUSCULAR VOLUME 110 fL (79.0-98.0); MONOCYTES # (AUTO) 0.2 K/uL (0.0-1.0); MONOCYTES % (AUTO) 1.7 % (1.7-9.3); NEUTROPHILS # (AUTO) 10.9 K/uL (1.8-7.7); NEUTROPHILS % (AUTO) 87.5 % (40.0-70.0); PLATELET COUNT (AUTO) 331 K/uL (130-430); RED BLOOD CELL COUNT(AUTO) 2.59 MIL/uL (4.2-6.2); RED CELL DISTRIBUTION WIDTH 15.5 % (9.0-15.0); WHITE BLOOD COUNT (AUTO) 12.4 K/uL (4.8-10.8)
[2020-08-09 07:14] LABS: ALANINE AMINOTRANSFERASE 129 U/L (12-78); ALBUMIN 1.4 g/dL (3.4-4.8); ANION GAP 4 (5-15); ASPARTATE AMINOTRANSFERASE 36 U/L (10-37); CHLORIDE 102 mmol/L (98-107); CREATININE 0.51 mg/dL (0.55-1.30); GLUCOSE 123 mg/dL (70-99); POTASSIUM 3.9 mmol/L (3.5-5.1); SODIUM SERUM 139 mmol/L (136-145); TOTAL BILIRUBIN 0.8 mg/dL (0.0-1.0); UREA NITROGEN, BLOOD 24 mg/dL (8-21)
[2020-08-09 08:13] LABS: ERYTHROCYTE SEDIMENTATION RATE 111 MM/HR (0-15)
[2020-08-09] MEDS: DOCUSATE SODIUM 100 MG/10 ML UDC NG SCH ×2 (09:00→23:50)
[2020-08-09] MEDS: DECADRON 4 MG TABLET PO SCH (10:38)
[2020-08-09] MEDS: FAMOTIDINE PF 20 MG/2 ML VIAL IVP SCH ×2 (10:38→23:51)
[2020-08-09] MEDS: ENOXAPARIN SODIUM 40 MG/0.4 ML SYRINGE SUBCUT SCH ×2 (10:38→23:52)
[2020-08-09] MEDS: ASCORBIC ACID 500 MG TABLET PO SCH ×2 (10:38→23:51)
[2020-08-09] MEDS: CHOLECALCIFEROL (VITAMIN D3) 5,000 UNIT TABLET PO SCH (10:38)
[2020-08-09 10:58] LABS: C-REACTIVE PROTEIN QUANT 23.6 mg/dL (0-0.5)
[2020-08-10] VITALS (31 sets, daily range): BP systolic 92–136
[2020-08-10] MEDS ORDERED: PROPOFOL DRIP 100 ML IV ONE ×4 (00:10→19:38)
[2020-08-10] MEDS: PIPERACILLIN/TAZO 3.375/DEX-IS 50 ML IV SCH ×4 (02:10→18:00)
[2020-08-10] MEDS: ALBUTEROL MDI INHALATION 8 GM INH INH SCH ×3 (03:23→14:53)
[2020-08-10] MEDS: D5/0.45 NS 1,000 ML IV SCH ×2 (05:15→11:50)
[2020-08-10] MEDS: PROPOFOL DRIP 100 ML IV PRN ×3 (06:27→19:47)
[2020-08-10 06:41] LABS: BASOPHILS # (AUTO) 0.1 K/uL (0.0-0.2); BASOPHILS % (AUTO) 0.8 % (0.0-2.0); EOSINOPHILS # (AUTO) 0.5 K/uL (0.0-0.4); EOSINOPHILS % (AUTO) 3.7 % (0.0-4.0); HEMATOCRIT 28.9 % (36-54); HEMOGLOBIN 9.6 g/dL (14.0-18.0); LYMPHOCYTES # (AUTO) 0.8 K/uL (1.0-5.5); LYMPHOCYTES % (AUTO) 6.8 % (20.5-51.5); MEAN CORPUSCULAR HEMOGLOBIN 37 pg (27-31); MEAN CORPUSCULAR HGB CONC 33 % (32-36); MEAN CORPUSCULAR VOLUME 111 fL (79.0-98.0); MONOCYTES # (AUTO) 0.2 K/uL (0.0-1.0); NEUTROPHILS # (AUTO) 10.6 K/uL (1.8-7.7); NEUTROPHILS % (AUTO) 86.7 % (40.0-70.0); PLATELET COUNT (AUTO) 315 K/uL (130-430); RED BLOOD CELL COUNT(AUTO) 2.61 MIL/uL (4.2-6.2); RED CELL DISTRIBUTION WIDTH 15.3 % (9.0-15.0); WHITE BLOOD COUNT (AUTO) 12.2 K/uL (4.8-10.8)
[2020-08-10 08:16] LABS: ANION GAP 5 (5-15); CALCIUM 7.5 mg/dL (8.4-11.0); CHLORIDE 98 mmol/L (98-107); CREATININE 0.44 mg/dL (0.55-1.30); GLUCOSE 132 mg/dL (70-99); POTASSIUM 3.5 mmol/L (3.5-5.1); SODIUM SERUM 134 mmol/L (136-145); UREA NITROGEN, BLOOD 22 mg/dL (8-21)
[2020-08-10] MEDS: DOCUSATE SODIUM 100 MG/10 ML UDC NG SCH (09:00)
[2020-08-10] MEDS: ENOXAPARIN SODIUM 40 MG/0.4 ML SYRINGE SUBCUT SCH ×2 (09:00→12:28)
[2020-08-10] MEDS: CHOLECALCIFEROL (VITAMIN D3) 5,000 UNIT TABLET PO SCH (10:19)
[2020-08-10] MEDS: FAMOTIDINE PF 20 MG/2 ML VIAL IVP SCH (10:19)
[2020-08-10] MEDS: ASCORBIC ACID 500 MG TABLET PO SCH (10:19)
[2020-08-10] MEDS: DECADRON 4 MG TABLET PO SCH (10:19)
[2020-08-10 10:24] LABS: ERYTHROCYTE SEDIMENTATION RATE 111 MM/HR (0-15)
[2020-08-10 12:45] LABS: C-REACTIVE PROTEIN QUANT 22.3 mg/dL (0-0.5)
[2020-08-11] VITALS (28 sets, daily range): BP systolic 93–139
[2020-08-11] MEDS: DOCUSATE SODIUM 100 MG/10 ML UDC NG SCH ×3 (00:07→22:09)
[2020-08-11] MEDS: FAMOTIDINE PF 20 MG/2 ML VIAL IVP SCH ×3 (00:07→22:00)
[2020-08-11] MEDS: ENOXAPARIN SODIUM 40 MG/0.4 ML SYRINGE SUBCUT SCH ×3 (00:08→22:13)
[2020-08-11] MEDS: ASCORBIC ACID 500 MG TABLET PO SCH ×3 (00:08→22:10)
[2020-08-11] MEDS: PIPERACILLIN/TAZO 3.375/DEX-IS 50 ML IV SCH ×4 (00:09→22:00)
[2020-08-11] MEDS: PROPOFOL DRIP 100 ML IV PRN ×4 (02:42→22:17)
[2020-08-11] MEDS: D5/0.45 NS 1,000 ML IV SCH ×2 (06:05)
[2020-08-11 06:38] LABS: ALANINE AMINOTRANSFERASE 82 U/L (12-78); ALBUMIN 1.4 g/dL (3.4-4.8); ANION GAP 4 (5-15); ASPARTATE AMINOTRANSFERASE 36 U/L (10-37); CALCIUM 7.9 mg/dL (8.4-11.0); CHLORIDE 102 mmol/L (98-107); CREATININE 0.37 mg/dL (0.55-1.30); GLUCOSE 141 mg/dL (70-99); POTASSIUM 3.7 mmol/L (3.5-5.1); SODIUM SERUM 139 mmol/L (136-145); TOTAL BILIRUBIN 0.3 mg/dL (0.0-1.0); UREA NITROGEN, BLOOD 21 mg/dL (8-21)
[2020-08-11 06:46] LABS: BASOPHILS # (AUTO) 0.1 K/uL (0.0-0.2); BASOPHILS % (AUTO) 0.8 % (0.0-2.0); EOSINOPHILS # (AUTO) 0.5 K/uL (0.0-0.4); EOSINOPHILS % (AUTO) 4.4 % (0.0-4.0); HEMATOCRIT 29.1 % (36-54); HEMOGLOBIN 9.5 g/dL (14.0-18.0); LYMPHOCYTES # (AUTO) 0.9 K/uL (1.0-5.5); LYMPHOCYTES % (AUTO) 7.2 % (20.5-51.5); MEAN CORPUSCULAR HEMOGLOBIN 36 pg (27-31); MEAN CORPUSCULAR HGB CONC 33 % (32-36); MEAN CORPUSCULAR VOLUME 111 fL (79.0-98.0); MONOCYTES # (AUTO) 0.3 K/uL (0.0-1.0); MONOCYTES % (AUTO) 2.7 % (1.7-9.3); NEUTROPHILS # (AUTO) 10.2 K/uL (1.8-7.7); NEUTROPHILS % (AUTO) 84.9 % (40.0-70.0); PLATELET COUNT (AUTO) 349 K/uL (130-430); RED BLOOD CELL COUNT(AUTO) 2.63 MIL/uL (4.2-6.2); RED CELL DISTRIBUTION WIDTH 15.4 % (9.0-15.0)
[2020-08-11] MEDS: ALBUTEROL MDI INHALATION 8 GM INH INH SCH ×5 (07:30→23:00)
[2020-08-11 07:31] LABS: C-REACTIVE PROTEIN QUANT 23.1 mg/dL (0-0.5)
[2020-08-11 08:12] LABS: ERYTHROCYTE SEDIMENTATION RATE 107 MM/HR (0-15)
[2020-08-11] MEDS: CHOLECALCIFEROL (VITAMIN D3) 5,000 UNIT TABLET PO SCH (08:42)
[2020-08-11] MEDS: DECADRON 4 MG TABLET PO SCH (08:42)
[2020-08-12] VITALS (28 sets, daily range): BP systolic 92–148
[2020-08-12] MEDS: ALBUTEROL MDI INHALATION 8 GM INH INH SCH ×6 (03:00→23:00)
[2020-08-12 06:33] LABS: HEMATOCRIT 29.4 % (36-54); HEMOGLOBIN 9.8 g/dL (14.0-18.0); MEAN CORPUSCULAR HEMOGLOBIN 36 pg (27-31); MEAN CORPUSCULAR HGB CONC 33 % (32-36); MEAN CORPUSCULAR VOLUME 110 fL (79.0-98.0); PLATELET COUNT (AUTO) 386 K/uL (130-430); RED BLOOD CELL COUNT(AUTO) 2.68 MIL/uL (4.2-6.2); RED CELL DISTRIBUTION WIDTH 15.6 % (9.0-15.0); WHITE BLOOD COUNT (AUTO) 10.3 K/uL (4.8-10.8)
[2020-08-12 06:47] LABS: CALCIUM 7.7 mg/dL (8.4-11.0); CHLORIDE 101 mmol/L (98-107); CREATININE 0.38 mg/dL (0.55-1.30); GLUCOSE 82 mg/dL (70-99); POTASSIUM 3.5 mmol/L (3.5-5.1); SODIUM SERUM 135 mmol/L (136-145); UREA NITROGEN, BLOOD 13 mg/dL (8-21)
[2020-08-12] MEDS: PIPERACILLIN/TAZO 3.375/DEX-IS 50 ML IV SCH ×2 (07:01→22:42)
[2020-08-12] MEDS: PROPOFOL DRIP 100 ML IV PRN (07:21)
[2020-08-12 07:41] LABS: ANION GAP < 3 (5-15)
[2020-08-12] MEDS: DOCUSATE SODIUM 100 MG/10 ML UDC NG SCH ×2 (08:01→22:41)
[2020-08-12] MEDS: FAMOTIDINE PF 20 MG/2 ML VIAL IVP SCH ×2 (08:21→22:38)
[2020-08-12] MEDS: ASCORBIC ACID 500 MG TABLET PO SCH ×2 (08:22→22:41)
[2020-08-12] MEDS: ENOXAPARIN SODIUM 40 MG/0.4 ML SYRINGE SUBCUT SCH ×2 (08:22→22:55)
[2020-08-12] MEDS: CHOLECALCIFEROL (VITAMIN D3) 5,000 UNIT TABLET PO SCH (08:22)
[2020-08-12 08:40] LABS: C-REACTIVE PROTEIN QUANT 15.3 mg/dL (0-0.5)
[2020-08-12 09:38] LABS: ERYTHROCYTE SEDIMENTATION RATE 107 MM/HR (0-15)
[2020-08-12 12:19] LABS: BAND % (MANUAL) 8 % (0-6); LYMPHOCYTES % (MANUAL) 12 % (20-46)
[2020-08-12 12:20] LABS: BASOPHILS % (MANUAL) 0 % (0-2); EOSINOPHILS % (MANUAL) 5 % (0-7); METAMYELOCYTES % 1 % (0-0); MONOCYTES % (MANUAL) 1 % (0-11)
[2020-08-13] VITALS (29 sets, daily range): BP systolic 96–155
[2020-08-13] MEDS: ALBUTEROL MDI INHALATION 8 GM INH INH SCH ×6 (03:32→23:08)
[2020-08-13 06:49] LABS: BASOPHILS # (AUTO) 0.2 K/uL (0.0-0.2); BASOPHILS % (AUTO) 1.8 % (0.0-2.0); EOSINOPHILS # (AUTO) 0.5 K/uL (0.0-0.4); EOSINOPHILS % (AUTO) 4.2 % (0.0-4.0); HEMATOCRIT 30.5 % (36-54); LYMPHOCYTES # (AUTO) 0.8 K/uL (1.0-5.5); MEAN CORPUSCULAR HEMOGLOBIN 36 pg (27-31); MEAN CORPUSCULAR HGB CONC 33 % (32-36); MEAN CORPUSCULAR VOLUME 111 fL (79.0-98.0); MONOCYTES # (AUTO) 0.4 K/uL (0.0-1.0); MONOCYTES % (AUTO) 3.8 % (1.7-9.3); NEUTROPHILS % (AUTO) 83.2 % (40.0-70.0); PLATELET COUNT (AUTO) 392 K/uL (130-430); RED BLOOD CELL COUNT(AUTO) 2.75 MIL/uL (4.2-6.2); RED CELL DISTRIBUTION WIDTH 15.8 % (9.0-15.0); WHITE BLOOD COUNT (AUTO) 10.8 K/uL (4.8-10.8)
[2020-08-13 06:57] LABS: ALANINE AMINOTRANSFERASE 67 U/L (12-78); ALBUMIN 1.3 g/dL (3.4-4.8); ANION GAP 4 (5-15); ASPARTATE AMINOTRANSFERASE 33 U/L (10-37); CALCIUM 7.2 mg/dL (8.4-11.0); CHLORIDE 101 mmol/L (98-107); CREATININE 0.37 mg/dL (0.55-1.30); GLUCOSE 170 mg/dL (70-99); POTASSIUM 3.4 mmol/L (3.5-5.1); SODIUM SERUM 135 mmol/L (136-145); TOTAL BILIRUBIN 0.2 mg/dL (0.0-1.0); UREA NITROGEN, BLOOD 29 mg/dL (8-21)
[2020-08-13 07:44] LABS: C-REACTIVE PROTEIN QUANT 12.6 mg/dL (0-0.5)
[2020-08-13 08:14] LABS: ERYTHROCYTE SEDIMENTATION RATE 104 MM/HR (0-15)
[2020-08-13] MEDS: FAMOTIDINE PF 20 MG/2 ML VIAL IVP SCH ×2 (08:28→20:21)
[2020-08-13] MEDS: ASCORBIC ACID 500 MG TABLET PO SCH ×2 (08:29→20:21)
[2020-08-13] MEDS: DOCUSATE SODIUM 100 MG/10 ML UDC NG SCH ×2 (08:29→20:21)
[2020-08-13] MEDS: CHOLECALCIFEROL (VITAMIN D3) 5,000 UNIT TABLET PO SCH (08:29)
[2020-08-13] MEDS ORDERED: KCL 20 mEq in 100 mL (PREMIX) 100 ML IV ONE (08:30)
[2020-08-13] MEDS: ENOXAPARIN SODIUM 40 MG/0.4 ML SYRINGE SUBCUT SCH ×2 (08:30→20:21)
[2020-08-13] MEDS: PIPERACILLIN/TAZO 3.375/DEX-IS 50 ML IV SCH ×2 (13:01→17:47)
[2020-08-13] MEDS: PROPOFOL DRIP 100 ML IV PRN (23:03)
[2020-08-14] VITALS (29 sets, daily range): BP systolic 103–138
[2020-08-14] MEDS: PIPERACILLIN/TAZO 3.375/DEX-IS 50 ML IV SCH ×5 (00:47→23:20)
[2020-08-14] MEDS: ALBUTEROL MDI INHALATION 8 GM INH INH SCH ×6 (03:00→23:00)
[2020-08-14] MEDS: PROPOFOL DRIP 100 ML IV PRN ×3 (06:05→22:11)
[2020-08-14] MEDS: D5/0.45 NS 1,000 ML IV SCH ×2 (06:44→15:50)
[2020-08-14 06:53] LABS: BASOPHILS # (AUTO) 0.1 K/uL (0.0-0.2); BASOPHILS % (AUTO) 0.8 % (0.0-2.0); EOSINOPHILS # (AUTO) 0.7 K/uL (0.0-0.4); EOSINOPHILS % (AUTO) 5.9 % (0.0-4.0); HEMATOCRIT 30.6 % (36-54); HEMOGLOBIN 10.1 g/dL (14.0-18.0); LYMPHOCYTES % (AUTO) 7.9 % (20.5-51.5); MEAN CORPUSCULAR HEMOGLOBIN 36 pg (27-31); MEAN CORPUSCULAR HGB CONC 33 % (32-36); MEAN CORPUSCULAR VOLUME 109 fL (79.0-98.0); MONOCYTES # (AUTO) 0.3 K/uL (0.0-1.0); MONOCYTES % (AUTO) 2.1 % (1.7-9.3); NEUTROPHILS # (AUTO) 10.2 K/uL (1.8-7.7); PLATELET COUNT (AUTO) 352 K/uL (130-430); RED BLOOD CELL COUNT(AUTO) 2.81 MIL/uL (4.2-6.2); RED CELL DISTRIBUTION WIDTH 15.7 % (9.0-15.0); WHITE BLOOD COUNT (AUTO) 12.2 K/uL (4.8-10.8)
[2020-08-14 07:25] LABS: ANION GAP 6 (5-15); CALCIUM 7.8 mg/dL (8.4-11.0); CHLORIDE 99 mmol/L (98-107); CREATININE 0.41 mg/dL (0.55-1.30); GLUCOSE 137 mg/dL (70-99); POTASSIUM 3.6 mmol/L (3.5-5.1); SODIUM SERUM 137 mmol/L (136-145); UREA NITROGEN, BLOOD 17 mg/dL (8-21)
[2020-08-14 07:30] LABS: NEUTROPHILS % (AUTO) 83.3 % (40.0-70.0)
[2020-08-14 08:00] LABS: C-REACTIVE PROTEIN QUANT 13.8 mg/dL (0-0.5)
[2020-08-14] MEDS: FAMOTIDINE PF 20 MG/2 ML VIAL IVP SCH ×2 (08:43→21:39)
[2020-08-14] MEDS: ASCORBIC ACID 500 MG TABLET PO SCH ×2 (08:43→21:39)
[2020-08-14] MEDS: DOCUSATE SODIUM 100 MG/10 ML UDC NG SCH ×2 (08:43→21:39)
[2020-08-14] MEDS: CHOLECALCIFEROL (VITAMIN D3) 5,000 UNIT TABLET PO SCH (08:44)
[2020-08-14] MEDS: ENOXAPARIN SODIUM 40 MG/0.4 ML SYRINGE SUBCUT SCH ×2 (08:45→21:39)
[2020-08-14] MEDS: ACETAMINOPHEN 325 MG TABLET PO PRN (08:45)
[2020-08-14 10:01] LABS: ERYTHROCYTE SEDIMENTATION RATE 104 MM/HR (0-15)
[2020-08-15] VITALS (28 sets, daily range): BP systolic 94–139
[2020-08-15] MEDS: D5/0.45 NS 1,000 ML IV SCH ×3 (01:30→21:50)
[2020-08-15] MEDS: ALBUTEROL MDI INHALATION 8 GM INH INH SCH ×6 (03:00→23:13)
[2020-08-15] MEDS: PIPERACILLIN/TAZO 3.375/DEX-IS 50 ML IV SCH ×3 (05:17→18:33)
[2020-08-15] MEDS: PROPOFOL DRIP 100 ML IV PRN ×3 (05:18→18:35)
[2020-08-15 07:35] LABS: BASOPHILS # (AUTO) 0.1 K/uL (0.0-0.2); BASOPHILS % (AUTO) 0.6 % (0.0-2.0); EOSINOPHILS # (AUTO) 0.5 K/uL (0.0-0.4); EOSINOPHILS % (AUTO) 4.1 % (0.0-4.0); HEMATOCRIT 29.2 % (36-54); HEMOGLOBIN 9.6 g/dL (14.0-18.0); LYMPHOCYTES # (AUTO) 1.1 K/uL (1.0-5.5); LYMPHOCYTES % (AUTO) 9.1 % (20.5-51.5); MEAN CORPUSCULAR HEMOGLOBIN 36 pg (27-31); MEAN CORPUSCULAR HGB CONC 33 % (32-36); MEAN CORPUSCULAR VOLUME 109 fL (79.0-98.0); MONOCYTES # (AUTO) 0.3 K/uL (0.0-1.0); MONOCYTES % (AUTO) 2.3 % (1.7-9.3); NEUTROPHILS # (AUTO) 10.3 K/uL (1.8-7.7); PLATELET COUNT (AUTO) 340 K/uL (130-430); RED BLOOD CELL COUNT(AUTO) 2.68 MIL/uL (4.2-6.2); RED CELL DISTRIBUTION WIDTH 15.6 % (9.0-15.0); WHITE BLOOD COUNT (AUTO) 12.2 K/uL (4.8-10.8)
[2020-08-15 07:36] LABS: ANION GAP 4 (5-15); CALCIUM 7.7 mg/dL (8.4-11.0); CHLORIDE 100 mmol/L (98-107); CREATININE 0.33 mg/dL (0.55-1.30); GLUCOSE 142 mg/dL (70-99); POTASSIUM 3.7 mmol/L (3.5-5.1); SODIUM SERUM 137 mmol/L (136-145); UREA NITROGEN, BLOOD 22 mg/dL (8-21)
[2020-08-15 07:52] LABS: NEUTROPHILS % (AUTO) 83.9 % (40.0-70.0)
[2020-08-15] MEDS: CHOLECALCIFEROL (VITAMIN D3) 5,000 UNIT TABLET PO SCH (09:01)
[2020-08-15] MEDS: DOCUSATE SODIUM 100 MG/10 ML UDC NG SCH ×2 (09:01→21:00)
[2020-08-15] MEDS: FAMOTIDINE PF 20 MG/2 ML VIAL IVP SCH ×2 (09:01→21:00)
[2020-08-15] MEDS: ASCORBIC ACID 500 MG TABLET PO SCH ×2 (09:01→21:00)
[2020-08-15] MEDS: ENOXAPARIN SODIUM 40 MG/0.4 ML SYRINGE SUBCUT SCH ×2 (09:01→21:00)
[2020-08-15 09:43] LABS: C-REACTIVE PROTEIN QUANT 22.7 mg/dL (0-0.5)
[2020-08-15 11:30] LABS: ERYTHROCYTE SEDIMENTATION RATE 109 MM/HR (0-15)
[2020-08-16] VITALS (23 sets, daily range): BP systolic 97–133
[2020-08-16] MEDS: ALBUTEROL MDI INHALATION 8 GM INH INH SCH ×5 (04:20→20:19)
[2020-08-16] MEDS: PIPERACILLIN/TAZO 3.375/DEX-IS 50 ML IV SCH ×4 (05:47→18:25)
[2020-08-16 07:30] LABS: BASOPHILS # (AUTO) 0.1 K/uL (0.0-0.2); BASOPHILS % (AUTO) 0.9 % (0.0-2.0); EOSINOPHILS # (AUTO) 0.5 K/uL (0.0-0.4); EOSINOPHILS % (AUTO) 3.5 % (0.0-4.0); HEMATOCRIT 28.9 % (36-54); HEMOGLOBIN 9.5 g/dL (14.0-18.0); LYMPHOCYTES # (AUTO) 1.3 K/uL (1.0-5.5); LYMPHOCYTES % (AUTO) 9.6 % (20.5-51.5); MEAN CORPUSCULAR HEMOGLOBIN 36 pg (27-31); MEAN CORPUSCULAR HGB CONC 33 % (32-36); MEAN CORPUSCULAR VOLUME 109 fL (79.0-98.0); MONOCYTES # (AUTO) 0.3 K/uL (0.0-1.0); MONOCYTES % (AUTO) 2.3 % (1.7-9.3); NEUTROPHILS % (AUTO) 83.7 % (40.0-70.0); PLATELET COUNT (AUTO) 320 K/uL (130-430); RED BLOOD CELL COUNT(AUTO) 2.66 MIL/uL (4.2-6.2); RED CELL DISTRIBUTION WIDTH 15.8 % (9.0-15.0); WHITE BLOOD COUNT (AUTO) 13.1 K/uL (4.8-10.8)
[2020-08-16 07:37] LABS: ALANINE AMINOTRANSFERASE 50 U/L (12-78); ALBUMIN 1.3 g/dL (3.4-4.8); ANION GAP 3 (5-15); ASPARTATE AMINOTRANSFERASE 39 U/L (10-37); CALCIUM 7.9 mg/dL (8.4-11.0); CHLORIDE 102 mmol/L (98-107); CREATININE 0.37 mg/dL (0.55-1.30); GLUCOSE 128 mg/dL (70-99); SODIUM SERUM 140 mmol/L (136-145); TOTAL BILIRUBIN 0.3 mg/dL (0.0-1.0); UREA NITROGEN, BLOOD 21 mg/dL (8-21)
[2020-08-16] MEDS: ENOXAPARIN SODIUM 40 MG/0.4 ML SYRINGE SUBCUT SCH ×2 (09:00→21:03)
[2020-08-16] MEDS: D5/0.45 NS 1,000 ML IV SCH ×2 (09:07→18:25)
[2020-08-16] MEDS: DOCUSATE SODIUM 100 MG/10 ML UDC NG SCH ×2 (09:07→21:02)
[2020-08-16] MEDS: CHOLECALCIFEROL (VITAMIN D3) 5,000 UNIT TABLET PO SCH (09:08)
[2020-08-16] MEDS: ASCORBIC ACID 500 MG TABLET PO SCH ×2 (09:08→21:02)
[2020-08-16] MEDS: FAMOTIDINE PF 20 MG/2 ML VIAL IVP SCH ×2 (11:00→21:02)
[2020-08-16 11:37] LABS: C-REACTIVE PROTEIN QUANT 20.3 mg/dL (0-0.5)
[2020-08-16 12:27] LABS: ERYTHROCYTE SEDIMENTATION RATE 108 MM/HR (0-15)
[2020-08-16] MEDS ORDERED: MENTHOL/ZINC OXIDE 113 GM OINT. TP PRN (18:45)
[2020-08-16] MEDS: PROPOFOL DRIP 100 ML IV PRN (18:49)
[2020-08-16] MEDS ORDERED: ENOXAPARIN SODIUM 40 MG/0.4 ML SYRINGE ONE (21:02)
[2020-08-17] MEDS ORDERED: BALSAM PERU/CASTOR OIL 60 GM OINT...G. TP SCH (09:00)
== END 2020-08-17 00:10 | disposition expired | DRG 870 ==
LOC: SED 20:06 → STU 07-20 06:08 → SIC 07-24 00:29
PROVIDERS: ADMIT Preventive Medicine Preventive Medicine/Occupational Environmental Medicine; ATTEND Preventive Medicine Preventive Medicine/Occupational Environmental Medicine
PROC: XW033E5 Introduction of Remdesivir Anti-infective into Peripheral Vein, Percutaneous Approach, New Technology Group 5 (ICD-10-PCS; 2020-07-20)
PROC: 5A1955Z Respiratory Ventilation, Greater than 96 Consecutive Hours (ICD-10-PCS; principal; 2020-07-24)
PROC: 0DH67UZ Insertion of Feeding Device into Stomach, Via Natural or Artificial Opening (ICD-10-PCS; 2020-07-24)
PROC: 0BH17EZ Insertion of Endotracheal Airway into Trachea, Via Natural or Artificial Opening (ICD-10-PCS; 2020-07-24)
PROC: XW13325 Transfusion of Convalescent Plasma (Nonautologous) into Peripheral Vein, Percutaneous Approach, New Technology Group 5 (ICD-10-PCS; 2020-07-26)
PROC: 02HV33Z Insertion of Infusion Device into Superior Vena Cava, Percutaneous Approach (ICD-10-PCS; 2020-07-26)
PROC: 5A12012 Performance of Cardiac Output, Single, Manual (ICD-10-PCS; 2020-08-17)
DX: A41.9 Sepsis, unspecified organism (principal); U07.1 COVID-19; J12.82 Pneumonia due to coronavirus disease 2019; J80 Acute respiratory distress syndrome; E43 Unspecified severe protein-calorie malnutrition; R65.21 Severe sepsis with septic shock; E87.1 Hypo-osmolality and hyponatremia; Z99.11 Dependence on respirator [ventilator] status; E87.0 Hyperosmolality and hypernatremia; G93.40 Encephalopathy, unspecified; D64.9 Anemia, unspecified; E11.65 Type 2 diabetes mellitus with hyperglycemia; E83.52 Hypercalcemia; R74.01 Elevation of levels of liver transaminase levels; E88.09 Other disorders of plasma-protein metabolism, not elsewhere classified; R13.10 Dysphagia, unspecified; D69.6 Thrombocytopenia, unspecified; R79.89 Other specified abnormal findings of blood chemistry; E87.6 Hypokalemia; Z68.23 Body mass index [BMI] 23.0-23.9, adult
CPT/HCPCS: 36415; 36600; 71045; 80048; 80053; 80076; 82550-TC; 82728; 82803-TC; 82962; 83605; 83735-TC; 83880; 84100-TC; 84484; 85007; 85025; 85027; 85379; 85651-TC; 86140; 86886; 86900; 86901; 87040-TC; 87081; 92950; 94003; 94640; 94664; 94760; 96365; 96367; 99285; C1751; G0378; J0330; J0456; J0696; J1650; J2543; J2704; J3370; J3490; J7030; J7040; J7042; J7050; J8540; P9017